=== PATIENT | male | born 1955 | race Caucasian/White ===

== ENCOUNTER 2018-10-24 21:55 | Emergency (ER) | payer OTHER ==
[2018-10-24 22:02] VITALS: BP 139/93; PULSE 91; TEMP 98.2; BMI 37.1
[2018-10-24] MEDS ORDERED: ALBUTEROL SO4 2.5/IPRATROPIUM 0.5 INH SOL 3 ML VIAL.NEB. NEB ONE (22:24)
--- NOTE | 2018-10-24 22:33 | PDOC ---
History of Present Illness - General Chief Complaint: Cold Symptoms Stated Complaint: COUGH/THINKS HE HAS ASTHMA Time Seen by Provider: 10/24/18 22:02 History Source: Patient Exam Limitations: No Limitations Past History - Past Medical History Allergies/Adverse Reactions: Allergies Allergy/AdvReac Type Severity Reaction Status Date / Time ibuprofen [From Motrin] Allergy Intermediate Verified 10/24/18 22:01 Home Medications: Ambulatory Orders Amlodipine Besylate [Norvasc -] 5 mg PO DAILY 10/20/14 Dextran 70/Hypromellose [Artificial Tears] 1 each OP DAILY 10/20/14 Tamsulosin HCl [Flomax -] 0.4 mg PO DAILY 10/20/14 Aspirin [ASA -] 81 mg PO DAILY #30 tab.chew 10/21/14 Atorvastatin Ca [Lipitor] 20 mg PO HS #30 tablet 10/21/14 Clopidogrel Bisulfate [Plavix -] 75 mg PO DAILY #30 tablet 10/21/14 Metoprolol Tartrate [Lopressor -] 25 mg PO BID #60 tablet 10/21/14 Zolpidem Tartrate [Ambien] 5 mg PO HS #0 tablet 10/21/14 Fluticasone Prop 0.05% Nasal [Flonase -] 1 - 2 spray NS DAILY #1 spray.pump 05/04 Montelukast Sodium [Singulair] 10 mg PO DAILY #10 tablet 10/24/18 COPD: No HTN: Yes - Immunization History Immunization Up to Date: Yes - Suicide/Smoking/Psychosocial Hx Smoking History: Unknown if ever smoked Have you smoked in the past 12 months: No Information on smoking cessation initiated: No Hx Alcohol Use: No Drug/Substance Use Hx: No Substance Use Type: None Hx Substance Use Treatment: No *Physical Exam - Vital Signs Last Vital Signs Temp Pulse Resp BP Pulse Ox 98.2 F 91 H 16 139/93 100 10/24/18 21:59 10/24/18 21:59 10/24/18 21:59 10/24/18 21:59 10/24/18 21:59 - Physical Exam General Appearance: No: Apparent Distress HEENT: positive: Normal Voice, Nasal Congestion, Rhinorrhea. negative: Muffled/ Hoarse voice, Pharyngeal Erythema, Tonsillar Exudate, Tonsillar Erythema, Sinus Tenderness Respiratory/Chest: positive: Wheezing (very minimal expiratory wheeze). negative: Respiratory Distress, Labored Respiration, Crackles, Rales, Rhonchi Cardiovascular: positive: Regular Rhythm, Regular Rate, S1, S2. negative: Murmur Gastrointestinal/Abdominal: positive: Normal Bowel Sounds, Soft. negative: Tender, Distended, Guarding, Rebound Integumentary: positive: Normal Color Neurologic: positive: Alert, Normal Mood/Affect Medical Decision Making - Medical Decision Making 63 y/o M with hx of HTN, HLD presents with dry cough x 1 week along with rhinorrhea, sneezing, nasal congestion, watery eyes, postnasal drip (worse at night). States suffers from allergies. Has tried Benadryl and Claritin at home without improvement of sxs. Denies fever, sob, cp, abd pain, n/v. Denies ever smoking in his life Sxs more consistent with likely allergic rhinitis Trial of duoneb given minimal wheeze heard and see if it helps 10/24/18 22:29 No further wheeze noted Stable for dc 10/24/18 22:50 *DC/Admit/Observation/Transfer Diagnosis at time of Disposition: Allergic rhinitis Qualifiers: Allergic rhinitis trigger: unspecified Allergic rhinitis seasonality: seasonal Qualified Code(s): J30.2 - Other seasonal allergic rhinitis - Discharge Dispostion Disposition: HOME Condition at time of disposition: Stable Decision to Admit order: No - Prescriptions Prescriptions: Fluticasone Prop 0.05% Nasal [Flonase -] 1 - 2 spray NS DAILY #1 spray.pump Montelukast Sodium [Singulair] 10 mg PO DAILY #10 tablet - Referrals - Patient Instructions Printed Discharge Instructions: DI for Allergic Rhinitis Additional Instructions: Thank you for choosing [facility]. It was a pleasure taking care of you. Likely your symptoms are from allergies Use the Flonase to help with your congestion for 1 week Use the Singular as directed Also recommend using Nedi-Pot to help with congestion Use humidifier at night Follow-up with your doctor in 2-3 days Return to the Emergency Department if your symptoms worsen or persist, you have fever, shortness of breath, chest pain or other concerning symptoms. Mohinder por elegir el [facility]. Fue un placer cuidar de ti. Probablemente tus sntomas laura de alergias. Usa el Flonase para ayudarte con tu congestin juan carlos 1 semana Usa el Singular rajesh se indica Tambin recomiendo usar Nedi-Pot para ayudar con la congestin Usar humidificador por la noche. Seguimiento con song mdico en 2-3 robertson. Regrese al Departamento de Emergencias si frances sntomas empeoran o persisten, tiene fiebre, falta de aliento, dolor en el pecho u otros sntomas relacionados. Print Language: MACANESE - Post Discharge Activity
== END 2018-10-24 22:56 | disposition home or self-care (01) ==
LOC: JERFT 21:55
PROC: 3E0F7GC Introduction of Other Therapeutic Substance into Respiratory Tract, Via Natural or Artificial Opening (ICD-10-PCS; principal; 2018-10-24)
DX: J30.2 Other seasonal allergic rhinitis (principal); I10 Essential (primary) hypertension; E78.5 Hyperlipidemia, unspecified
CPT/HCPCS: 99281-25

== ENCOUNTER 2018-12-01 14:29 | Observation (INO) | payer OTHER ==
[2018-12-01] MEDS ORDERED: ASPIRIN 81 MG CHEWABLE TABLETS PO ONE (15:01)
--- NOTE | 2018-12-01 15:01 | PDOC ---
History of Present Illness - General Chief Complaint: Chest Pain Stated Complaint: CHEST PAIN Time Seen by Provider: 12/01/18 14:55 History Source: Patient Exam Limitations: No Limitations - History of Present Illness Initial Comments: 63 yo M w a hx of HTN, HLD, and NIDDM presents to the ER with 2 hours of left sided chest pin described as a swollen and heavy sensation, rated 7/10 in intensity associated with radiation down the right arm. The patient endorses nausea but no emesis. He has also been experiencing excessive sweating recently. The patient states the pain came on while he was at rest and it is not worsened by physical exertion. The patient states he has felt this pain occasionally in the past but it has never been this bad so he came to get the pain evaluated. The patient denies current SOB or difficulty breathing. PCP - GREENSKEEPER: Zandra Segovia PSH: None reported Social Hx: Denies smoking, drinking, or other substance usage Allergies: Seasonal - NKDA. Denies being allergic to ibuprofen. Past History - Past Medical History Allergies/Adverse Reactions: Allergies Allergy/AdvReac Type Severity Reaction Status Date / Time ibuprofen [From Motrin] Allergy Intermediate Verified 12/01/18 14:32 Home Medications: Ambulatory Orders Amlodipine Besylate [Norvasc -] 5 mg PO DAILY 10/20/14 Dextran 70/Hypromellose [Artificial Tears] 1 each OP DAILY 10/20/14 Tamsulosin HCl [Flomax -] 0.4 mg PO DAILY 10/20/14 Atorvastatin Ca [Lipitor] 20 mg PO HS #30 tablet 10/21/14 Clopidogrel Bisulfate [Plavix -] 75 mg PO DAILY #30 tablet 10/21/14 Metoprolol Tartrate [Lopressor -] 25 mg PO BID #60 tablet 10/21/14 Zolpidem Tartrate [Ambien] 5 mg PO HS #0 tablet 10/21/14 Fluticasone Prop 0.05% Nasal [Flonase -] 1 - 2 spray NS DAILY #1 spray.pump 05/04 Montelukast Sodium [Singulair] 10 mg PO DAILY #10 tablet 10/24/18 COPD: No HTN: Yes - Immunization History Immunization Up to Date: Yes - Suicide/Smoking/Psychosocial Hx Smoking History: Never smoked Have you smoked in the past 12 months: No Information on smoking cessation initiated: No Hx Alcohol Use: No Drug/Substance Use Hx: No Substance Use Type: None Hx Substance Use Treatment: No Review of Systems - Review of Systems Able to Perform ROS?: Yes Comments:: CONSTITUTIONAL: Absent: fever, no chills, no fatigue EYES: Absent: visual changes ENT: Absent: ear pain, no sore throat CARDIOVASCULAR: Present: Chest pain Absent: no palpitations RESPIRATORY: Absent: cough, no SOB GI: Present: Nausea Absent: abdominal pain, no vomiting, no constipation, no diarrhea GENITOURINARY: Absent: dysuria, no frequency, no hematuria MUSKULOSKELETAL: Absent: back pain, no arthralgia, no myalgia SKIN: Absent: rash NEURO: Absent: headache *Physical Exam - Vital Signs Last Vital Signs Temp Pulse Resp BP Pulse Ox 98.5 F 105 H 17 141/93 98 12/01/18 14:32 12/01/18 14:32 12/01/18 14:32 12/01/18 14:32 12/01/18 14:32 - Physical Exam Comments: GENERAL: Well-appearing, well-nourished. No apparent distress. HEENT: Normocephalic, atraumatic. PERRL, EOM intact. CARDIOVASCULAR: Normal S1, S2. Regular rate and rhythm. PULMONARY: No evidence of respiratory distress. Lungs clear to auscultation bilaterally. No wheezing, rales or rhonchi. ABDOMEN: Soft, non-distended, non-tender. EXTREMITIES: Normal ROM in all four extremities. No gross deformities. SKIN: Warm, dry. No rash NEUROLOGICAL: No focal neurological deficits. Heart Score/ECG Review - History History: Moderately suspicious - Electrocardiogram EKG: Normal - Age Age: 45-65 - Risk Factors Risk Factors Heart Score: Yes Hx Hypercholesterolemia, Yes Hx Hypertension, Yes Hx Diabetes, Yes Hx Obesity Based on the list above the patient has:: >/=3 risk factors or Hx atherosclerotic disease - Troponin Troponin: </= normal limit - Score Heart Score - Total: 4 ED Treatment Course - LABORATORY CBC & Chemistry Diagram: 12/01/18 15:05 12/01/18 15:05 Medical Decision Making - Medical Decision Making 63 yo M w a hx of HTN, HLD, and NIDDM presents to the ER with 2 hours of left sided chest pin described as a swollen sensation, rated 5/10 in intensity associated with radiation down the right arm. The patient endorses nausea but no emesis and denies recent diaphoresis. The patient states the pain came on while he was at rest and it is not worsened by physical exertion. The patient states he has felt this pain occasionally in the past but it was worse today so he came to get the pain evaluated. Vital Signs Temp Pulse Resp BP Pulse Ox 98.5 F 105 H 17 141/93 98 12/01/18 14:32 12/01/18 14:32 12/01/18 14:32 12/01/18 14:32 12/01/18 14:32 DDx IBNLT: ACS/IA, Angina, electrolyte/metabolic disturbance, PNA, pneumothorax , URI, pericarditis, costochondritis Plan: Labs, CXR, EKG, re-assess. HEART score minimum 4 - Patient will probably be admitted to [facility] bc of his story and risk factors. *DC/Admit/Observation/Transfer Diagnosis at time of Disposition: Chest pain - Discharge Dispostion Condition at time of disposition: Stable Decision to Admit order: Yes - Referrals Referrals: Marilyn Duke MD [Primary Care Provider] - - Patient Instructions - Post Discharge Activity
[2018-12-01] MEDS ORDERED: ASPIRIN 81 MG CHEWABLE TABLETS ONE (15:15)
[2018-12-01 15:17] LABS: BASO % 0.8 % (0-2.0); EOS % 4.1 % (0-4.5); HEMATOCRIT 45.8 % (35.4-49); HEMOGLOBIN 15.7 GM/dL (11.7-16.9); LYMPH % 15.5 % (8-40); MCH 28.3 pg (25.7-33.7); MCHC 34.3 g/dl (32.0-35.9); MEAN CELL VOLUME 82.5 fl (80-96); MEAN PLT VOLUME 7.9 fl (7.5-11.1); MONO % 7.2 % (3.8-10.2); NEUT % 72.4 % (42.8-82.8); PLATELET COUNT 305 K/MM3 (134-434); RBC 5.55 M/mm3 (4.00-5.60); RDW 13.6 % (11.9-15.9); WHITE BLOOD COUNT 7.9 K/mm3 (4.0-10.0)
[2018-12-01 15:40] LABS: INR 1.13 (0.83-1.09); PROTHROMBIN TIME (PATIENT) 13.4 SEC (9.7-13.0)
[2018-12-01 15:57] LABS: ALBUMIN 4.1 g/dl (3.4-5.0); ALK PHOS 102 U/L (45-117); ANION GAP 6 MMOL/L (8-16); BILIRUBIN,TOTAL 0.5 mg/dL (0.2-1); BLOOD UREA NITROGEN 11.5 mg/dL (7-18); CALCIUM 8.9 mg/dL (8.5-10.1); CHLORIDE 105 mmol/L (98-107); CO2 31 mmol/L (21-32); CREATININE 1.3 mg/dL (0.55-1.3); GLUCOSE,RANDOM 125 mg/dL (74-106); MAGNESIUM 2.3 mg/dL (1.8-2.4); POTASSIUM 3.9 mmol/L (3.5-5.1); SGOT/AST 25 U/L (15-37); SGPT/ALT 39 U/L (13-61); SODIUM 141 mmol/L (136-145); TOT PROT 7.9 g/dl (6.4-8.2)
--- NOTE | 2018-12-01 16:42 | PDOC ---
Documentation entered by Frida Barrow SCRIBE, acting as scribe for Maribel Celis MD. Maribel Celis MD: This documentation has been prepared by the geniaibe, Frida Barrow SCRIBE, under my direction and personally reviewed by me in its entirety. I confirm that the documentation accurately reflects all work, treatment, procedures, and medical decision making performed by me. Attending Attestation - Resident Resident Name: Pete Braswell - ED Attending Attestation I have performed the following: I have examined & evaluated the patient, The case was reviewed & discussed with the resident, I agree w/resident's findings & plan, Exceptions are as noted - HPI HPI: 12/01/18 16:11 The patient is a 63 year old male with a past medical history significant for HTN, HLD, NIDDM presents to the emergency department with chest pain. The patient presents with 3 hours of intermittent, left sided squeaking pain associated with right arm numbness. The patient reports the pain presented while driving, non-aggravated with exertion or isnt associated with shortness of breath. Allergies: Ibuprofen. - Physicial Exam PE: 12/01/18 16:13 GENERAL: The patient is in no acute distress. +diaphoretic. ENT: Ears normal, nares patent, oropharynx clear without exudates. Moist mucous membranes. NECK: Normal range of motion, supple, no nuchal rigidity LUNGS: Breath sounds equal, clear to auscultation bilaterally. No wheezes, and no crackles. HEART: Regular rate and rhythm, normal S1 and S2 without murmurs, rubs or gallops. ABDOMEN: Soft, nontender. No guarding, no rebound. No masses palpable. EXTREMITIES: Normal range of motion, no edema. NEUROLOGICAL: Cranial nerves II through XII grossly intact. Normal speech. No focal neurological deficits. SKIN: Warm, Dry, normal turgor, no rashes or lesions noted. - Medical Decision Making 12/01/18 16:39 63 yo M DM, HTN, HLD, Obesity presenting with 3 hours of left sided squeezing chest pain with radiation to the right arm Occurred while driving No prior episodes like this Chest pain non exertional No shortness of breath No fevers or chills DD: Differential includes cardiac ischemia, pe, asthma exacerbation, pneumonia, pneumothorax, pleural effusion, costochondritis, pericarditis, GERD. Laboratory Tests 12/01/18 12/01/18 12/01/18 15:05 15:05 15:05 WBC 7.9 Hgb 15.7 Hct 45.8 Plt Count 305 D INR 1.13 H BUN 11.5 Creatinine 1.3 Creatine Kinase 65 Troponin I < 0.02 EKG - Twelve-lead EKG was performed and reviewed by me. There is normal sinus rhythm with a normal rate. The axis is normal. The intervals are normal. There are no ST or T wave abnormalities. Impression: Normal twelve-lead EKG CXR- no acute infiltrates seen 12/01/18 16:40 Will admit Pt HEART SCORE: [address] on observation Heart Score/ECG Review - History History: Moderately suspicious - Electrocardiogram EKG: Normal - Age Age: 45-65 - Risk Factors Risk Factors Heart Score: Yes Hx Hypercholesterolemia, Yes Hx Hypertension, Yes Hx Diabetes, Yes Hx Obesity Based on the list above the patient has:: >/=3 risk factors or Hx atherosclerotic disease - Troponin Troponin: </= normal limit - Score Heart Score - Total: 4
[2018-12-01] MEDS ORDERED: ARTIFICIAL TEARS (POLYVINYL ALCOHOL) OPTH DROPS OU PRN (16:48)
--- NOTE | 2018-12-01 16:49 | HP ---
Admitting History and Physical - Primary Care Physician PCP: Marilyn Duke - Admission Chief Complaint: Chest Pain History of Present Illness: 63 yrs old male obese H/O HTN, Borderline T2DM on Metformin, Dyslipedemia,CAD s /p Cardiac Cath (10/24/2014 at [facility]. admitted at [place] + NST shows Inf Ischemia so referred to [place] unsure about stenting not on Plavix) present with Left sided chest discimfort with that he describes as pressure with Rt. UE numbness and perspiration, denies any SOB, plapitation, symptoms cont for 2 hrs so came to Ed fir evaluation, in the ED hemodynamically stable chest pain improved EKG NSR Ist Troponin I negative consideriong risk factors and HEART scopre 4 admitted for further evaluation to R/O ACS> Home Meds; per his Pharmacy ([facility]) Lipitor 10 vit d 2000 Amlodipine 10 metformin 500 daily Flomax 0.4 Protonix 40 ASA 81 History Source: Patient - Past Medical History Cardiovascular: Yes: HTN, Hyperlipdemia - Past Surgical History Past Surgical History: Yes: None - Smoking History Smoking history: Never smoked Have you smoked in the past 12 months: No - Alcohol/Substance Use Hx Alcohol Use: No History of Substance Use: reports: None - Social History ADL: Independent History of Recent Travel: No Home Medications - Allergies Allergies/Adverse Reactions: Allergies Allergy/AdvReac Type Severity Reaction Status Date / Time ibuprofen [From Motrin] Allergy Intermediate Verified 12/01/18 14:32 - Home Medications Home Medications: Ambulatory Orders Amlodipine Besylate [Norvasc -] 5 mg PO DAILY 10/20/14 Dextran 70/Hypromellose [Artificial Tears] 1 each OP DAILY 10/20/14 Tamsulosin HCl [Flomax -] 0.4 mg PO DAILY 10/20/14 Atorvastatin Ca [Lipitor] 20 mg PO HS #30 tablet 10/21/14 Clopidogrel Bisulfate [Plavix -] 75 mg PO DAILY #30 tablet 10/21/14 Metoprolol Tartrate [Lopressor -] 25 mg PO BID #60 tablet 10/21/14 Zolpidem Tartrate [Ambien] 5 mg PO HS #0 tablet 10/21/14 Fluticasone Prop 0.05% Nasal [Flonase -] 1 - 2 spray NS DAILY #1 spray.pump 05/04 Montelukast Sodium [Singulair] 10 mg PO DAILY #10 tablet 10/24/18 Family Disease History - Family Disease History Family History: Unremarkable Review of Systems - Review of Systems Constitutional: denies: Chills, Diaphoresis HENT: denies: Difficult Swallowing, Ear Discharge Neck: denies: Decreased ROM, Lumps, Pain on Movement Cardiovascular: reports: Chest Pain. denies: Edema, Palpitations, Shortness of Breath Respiratory: denies: Cough, Exercise Intolerance, Hemoptysis Gastrointestinal: denies: Abdominal Pain, Bloating, Constipation, Diarrhea Genitourinary: denies: Burning, Discharge, Testicular Swelling Musculoskeletal: denies: Back Pain, Crepitus Integumentary: denies: Blister, Bruising Endocrine: denies: Excessive Sweating, Flushing Pain Intensity: 40 Physical Examination Vital Signs: Vital Signs Temperature 98.5 F 12/01/18 14:32 Pulse Rate 105 H 12/01/18 14:32 Respiratory Rate 17 12/01/18 14:32 Blood Pressure 141/93 12/01/18 14:32 O2 Sat by Pulse Oximetry (%) 98 12/01/18 14:32 Constitutional: Yes: Well Nourished, No Distress HENT: Yes: WNL, Atraumatic, Normocephalic, Pharyngeal Erythema Cardiovascular: Yes: S1, S2. No: JVD, Gallop, Murmur Respiratory: Yes: Regular, CTA Bilaterally Gastrointestinal: Yes: Normal Bowel Sounds, Soft Extremities: No: Calf Tenderness Edema: No Peripheral Pulses WNL: Yes Peripheral Pulses: Left Doralis Pedis: 2+, Right Dorsalis Pedis: 2+ Neurological: Yes: Alert, Oriented ...Motor Strength: WNL, LLE, RUE, RLE Labs: CBC,CMP WBC 7.9 K/mm3 (4.0-10.0) 12/01/18 15:05 RBC 5.55 M/mm3 (4.00-5.60) 12/01/18 15:05 Hgb 15.7 GM/dL (11.7-16.9) 12/01/18 15:05 Hct 45.8 % (35.4-49) 12/01/18 15:05 MCV 82.5 fl (80-96) 12/01/18 15:05 MCH 28.3 pg (25.7-33.7) 12/01/18 15:05 MCHC 34.3 g/dl (32.0-35.9) 12/01/18 15:05 RDW 13.6 % (11.9-15.9) 12/01/18 15:05 Plt Count 305 K/MM3 (134-434) D 12/01/18 15:05 MPV 7.9 fl (7.5-11.1) 12/01/18 15:05 Absolute Neuts (auto) 5.7 K/mm3 (1.5-8.0) 12/01/18 15:05 Neutrophils % 72.4 % (42.8-82.8) 12/01/18 15:05 Lymphocytes % 15.5 % (8-40) 12/01/18 15:05 Monocytes % 7.2 % (3.8-10.2) 12/01/18 15:05 Eosinophils % 4.1 % (0-4.5) 12/01/18 15:05 Basophils % 0.8 % (0-2.0) 12/01/18 15:05 Nucleated RBC % 0 % (0-0) 12/01/18 15:05 Sodium 141 mmol/L (136-145) 12/01/18 15:05 Potassium 3.9 mmol/L (3.5-5.1) 12/01/18 15:05 Chloride 105 mmol/L (98-107) 12/01/18 15:05 Carbon Dioxide 31 mmol/L (21-32) 12/01/18 15:05 Anion Gap 6 MMOL/L (8-16) L 12/01/18 15:05 BUN 11.5 mg/dL (7-18) 12/01/18 15:05 Creatinine 1.3 mg/dL (0.55-1.3) 12/01/18 15:05 Est GFR (CKD-EPI)AfAm 66.83 12/01/18 15:05 Est GFR (CKD-EPI)NonAf 57.66 12/01/18 15:05 Random Glucose 125 mg/dL (74-106) H 12/01/18 15:05 Calcium 8.9 mg/dL (8.5-10.1) 12/01/18 15:05 Magnesium 2.3 mg/dL (1.8-2.4) 12/01/18 15:05 Total Bilirubin 0.5 mg/dL (0.2-1) 12/01/18 15:05 AST 25 U/L (15-37) 12/01/18 15:05 ALT 39 U/L (13-61) 12/01/18 15:05 Alkaline Phosphatase 102 U/L (45-117) 12/01/18 15:05 Creatine Kinase 65 U/L (26-308) 12/01/18 15:05 Troponin I < 0.02 ng/ml (0.00-0.05) 12/01/18 15:05 Total Protein 7.9 g/dl (6.4-8.2) 12/01/18 15:05 Albumin 4.1 g/dl (3.4-5.0) 12/01/18 15:05 Imaging - Results Chest X-ray: Report Reviewed (Normal) EKG: Report Reviewed (NSR at [address] changes) Problem List - Problems (1) Chest pain Assessment/Plan: Atypical but CAD risk factors H/O angioplasty will admit for observation , Cardiac Tele, serial CE and EKGS X2, cont ASA 81, Lipitor , ECHO, Cardiology consult Code(s): R07.9 - CHEST PAIN, UNSPECIFIED (2) HTN (hypertension) Assessment/Plan: Well controlled cont Amlodipine 10 mg Code(s): I10 - ESSENTIAL (PRIMARY) HYPERTENSION (3) Hyperlipidemia Assessment/Plan: On Lipitor 10 F/U Lipid panel TSH a cont Liptor one doni dose of 80 mg for ACS Code(s): E78.5 - HYPERLIPIDEMIA, UNSPECIFIED (4) Obesity Assessment/Plan: Nutrition consult Code(s): E66.9 - OBESITY, UNSPECIFIED Qualifiers: Body mass index: BMI 38.0-38.9 (5) BPH (benign prostatic hyperplasia) Assessment/Plan: Cont Flomax Code(s): N40.0 - BENIGN PROSTATIC HYPERPLASIA WITHOUT LOWER URINRY TRACT SYMP (6) Borderline diabetes Assessment/Plan: hold metformin f/u accucheck Code(s): R73.03 - PREDIABETES (7) CAD (coronary artery disease) Assessment/Plan: Probably non obstructive previously undewrwent CATh but not on plavix unable to recall if he had stent Cont ASa, sttain R/O ACS, ECHO will F/U Cardiology input. Code(s): I25.10 - ATHSCL HEART DISEASE OF [place] CORONARY ARTERY W/O ANG PCTRS
[2018-12-01] MEDS ORDERED: ATORVASTATIN CA 80 MG TABLET (FP) PO ONE (18:49)
[2018-12-01] MEDS ORDERED: ATORVASTATIN CA 80 MG TABLET (FP) ONE (19:26)
[2018-12-01] MEDS ORDERED: LORATADINE 10 MG TABLET ONE (19:26)
[2018-12-01] MEDS: LORATADINE 10 MG TABLET PO SCH (20:55)
[2018-12-01 21:45] LABS: CHOLESTEROL 107 mg/dL (50-200); HDL CHOLESTEROL 27 mg/dL (40-60); TRIGLYCERIDES 162 mg/dL (0-150)
[2018-12-01] MEDS ORDERED: METOPROLOL TARTRATE 25 MG TABLET (FP) PO SCH (22:00)
[2018-12-01] MEDS ORDERED: ATORVASTATIN CA 20 MG TABLET (FP) PO SCH (22:00)
[2018-12-01] MEDS: ZOLPIDEM TARTRATE 5 MG TABLET PO SCH (22:13)
[2018-12-02 00:39] VITALS: BMI 36.2
[2018-12-02] MEDS: INSULIN SLIDING SCALE (NOVOLOG) 1 VIAL SQ SCH ×3 (06:01→16:41)
[2018-12-02 06:44] LABS: HEMATOCRIT 42.2 % (35.4-49); WHITE BLOOD COUNT 6.4 K/mm3 (4.0-10.0)
[2018-12-02 06:57] LABS: ALBUMIN 3.6 g/dl (3.4-5.0); BILIRUBIN,TOTAL 0.6 mg/dL (0.2-1); BLOOD UREA NITROGEN 13.9 mg/dL (7-18); CALCIUM 8.6 mg/dL (8.5-10.1); CREATININE 1.1 mg/dL (0.55-1.3); POTASSIUM 4.2 mmol/L (3.5-5.1); TOT PROT 6.8 g/dl (6.4-8.2)
--- NOTE | 2018-12-02 07:35 | PN ---
Progress Note, Physician History of Present Illness: 63 yrs old male PMH HTN, Borderline T2DM on Metformin, Dyslipedemia,CAD s/p Cardiac Cath (10/24/2014 at [facility]. admitted at [place] + NST shows Inf Ischemia - referred to [place] leif questionable stent placement however not on anticoagualtion) present with Left sided chest discomfort while driving described as pressure with right arm numbness and diaphoresis, denies SOB, palpations lasting for 2 hours. Upon arrival to ED hemodynamically stable chest pain improved EKG NSR with Troponin I negative x2 - Current Medication List Current Medications: Active Medications Amlodipine Besylate (Norvasc -) 5 mg PO DAILY [facility] Artificial Tears (Artificial Tears) 1 drop OU DAILY [facility] Aspirin (Asa -) 81 mg PO DAILY [facility] Fluticasone Propionate (Flonase -) 1 spray NS DAILY [facility] Insulin Aspart (Novolog Vial Sliding Scale -) 1 vial SQ TIDAC [facility]; Protocol Last Admin: 12/02/18 06:01 Dose: Not Given Loratadine (Claritin -) 10 mg PO DAILY [facility] Last Admin: 12/01/18 20:55 Dose: 10 mg Tamsulosin HCl (Flomax -) 0.4 mg PO DAILY [facility] Zolpidem Tartrate (Ambien -) 5 mg PO HS [facility] Last Admin: 12/01/18 22:13 Dose: 5 mg - Objective Vital Signs: Vital Signs Temperature 97.7 F 12/02/18 06:00 Pulse Rate 76 12/02/18 06:00 Respiratory Rate 18 12/02/18 06:00 Blood Pressure 116/74 12/02/18 06:00 O2 Sat by Pulse Oximetry (%) 97 12/02/18 05:30 Constitutional: Yes: Well Nourished, No Distress, Calm Eyes: Yes: WNL, Conjunctiva Clear, EOM Intact HENT: Yes: WNL, Atraumatic, Normocephalic Neck: Yes: WNL, Supple, Trachea Midline Cardiovascular: Yes: WNL, Regular Rate and Rhythm Respiratory: Yes: WNL, Regular, CTA Bilaterally Gastrointestinal: Yes: WNL, Normal Bowel Sounds, Soft, Abdomen, Obese ...Rectal Exam: Yes: Deferred Genitourinary: Yes: WNL Musculoskeletal: Yes: WNL Extremities: Yes: WNL Edema: No Peripheral Pulses WNL: Yes Integumentary: Yes: WNL Neurological: Yes: WNL, Alert, Oriented, Other (primarily malaysian speaking) ...Motor Strength: WNL Psychiatric: Yes: WNL, Alert, Oriented Labs: CBC, BMP 12/02/18 05:35 INR, PTT INR 1.13 (0.83-1.09) H 12/01/18 15:05 - ....Imaging Chest X-ray: Report Reviewed, Image Reviewed (no effsuion or infiltrates) EKG: Image Reviewed (NSR, QTc 447) Problem List - Problems (1) Prophylactic measure Assessment/Plan: FEN low fat/cholesterol diabetic diet monitor electrolytes nutrition counseling Prophy SCDs ambulation ad mirta Dispo mainatin as in patient discharge planning full code Code(s): Z29.9 - ENCOUNTER FOR PROPHYLACTIC MEASURES, UNSPECIFIED (2) BPH (benign prostatic hyperplasia) Assessment/Plan: continue home dose of flomax Code(s): N40.0 - BENIGN PROSTATIC HYPERPLASIA WITHOUT LOWER URINRY TRACT SYMP (3) CAD (coronary artery disease) Assessment/Plan: + stress test 2014; a subsequent coronary angiogram showed nonobstructive CAD. Coronary angiogram 10/24/2014 at [facility]: non obstructive CAD (LAD proximal, mid and distal with 30% stenoses; LCx mid 30%; RCA luminal irregularities). plan for exercise stress today Code(s): I25.10 - ATHSCL HEART DISEASE OF [place] CORONARY ARTERY W/O ANG PCTRS (4) Chest pain Assessment/Plan: EKG NSR, trops negative x 2 ASA given in ED and continue daily cardiology consulted and appreciate recommendations Exercise stress planned for today Code(s): R07.9 - CHEST PAIN, UNSPECIFIED (5) Diabetes Assessment/Plan: continue to hold metformin BGM AC.qHS with novolog sliding scale Code(s): E11.9 - TYPE 2 DIABETES MELLITUS WITHOUT COMPLICATIONS (6) HTN (hypertension) Assessment/Plan: normotensive, continue home dose of amlodopine Code(s): I10 - ESSENTIAL (PRIMARY) HYPERTENSION (7) Hyperlipidemia Assessment/Plan: continue home dose or lipitor Code(s): E78.5 - HYPERLIPIDEMIA, UNSPECIFIED (8) Obesity Assessment/Plan: nutrition counseling Code(s): E66.9 - OBESITY, UNSPECIFIED Qualifiers: Body mass index: BMI 38.0-38.9 Visit type - Emergency Visit Emergency Visit: Yes ED Registration Date: 12/01/18 Care time: The patient presented to the Emergency Department on the above date and was hospitalized for further evaluation of their emergent condition. - New Patient This patient is new to me today: Yes Date on this admission: 12/02/18 - Critical Care Critical Care patient: No - Discharge Referral Referred to [facility] No
[2018-12-02 07:37] LABS: BASO % 0.5 % (0-2.0); EOS % 6.8 % (0-4.5); HEMOGLOBIN 14.4 GM/dL (11.7-16.9); LYMPH % 21.8 % (8-40); MCH 28.2 pg (25.7-33.7); MCHC 34.2 g/dl (32.0-35.9); MEAN CELL VOLUME 82.5 fl (80-96); MEAN PLT VOLUME 8.3 fl (7.5-11.1); MONO % 9.2 % (3.8-10.2); NEUT % 61.7 % (42.8-82.8); PLATELET COUNT 282 K/MM3 (134-434); RBC 5.11 M/mm3 (4.00-5.60); RDW 13.8 % (11.9-15.9)
--- NOTE | 2018-12-02 08:08 | EKG ---
Test Reason : Blood Pressure : / mmHG Vent. Rate : 097 BPM Atrial Rate : 097 BPM P-R Int : 172 ms QRS Dur : 090 ms QT Int : 352 ms P-R-T Axes : 063 025 072 degrees QTc Int : 447 ms NORMAL SINUS RHYTHM LOW VOLTAGE QRS BORDERLINE ECG WHEN COMPARED WITH ECG OF 21-OCT-2014 09:03, NO SIGNIFICANT CHANGE WAS FOUND Confirmed by SEBASTIAN JIMENEZ MD ([id number]) on 12/02/2018 8:07:53 AM Referred By: Confirmed By:SEBASTIAN JIMENEZ MD
--- NOTE | 2018-12-02 08:12 | CON.CARD ---
Consult Consult Specialty:: Cardiology - History of Present Illness History of Present Illness: 63 yrs old male obese H/O HTN, Borderline T2DM on Metformin, Dyslipedemia,CAD s/ p Cardiac Cath (10/24/2014 at [facility]. admitted at [place] + NST shows Inf Ischemia so referred to [place] unsure about stenting not on Plavix) present with Left sided chest discimfort with that he describes as pressure with Rt. UE numbness and perspiration, denies any SOB, plapitation, symptoms cont for 2 hrs so came to Ed fir evaluation, in the ED hemodynamically stable chest pain improved EKG NSR Ist Troponin I negative consideriong risk factors and HEART scopre 4 admitted for further evaluation to R/O ACS> Home Meds; per his Pharmacy ([facility]) - Past Medical History Cardio/Vascular: Yes: HTN, Hyperlipdemia - Past Surgical History Past Surgical History: Yes: None - Alcohol/Substance Use Hx Alcohol Use: No History of Substance Use: reports: None - Smoking History Smoking history: Never smoked Have you smoked in the past 12 months: No - Social History ADL: Independent History of Recent Travel: No Home Medications - Allergies Allergies/Adverse Reactions: Allergies Allergy/AdvReac Type Severity Reaction Status Date / Time ibuprofen [From Motrin] Allergy Intermediate Verified 12/01/18 14:32 - Home Medications Home Medications: Ambulatory Orders Amlodipine Besylate [Norvasc -] 5 mg PO DAILY 10/20/14 Dextran 70/Hypromellose [Artificial Tears] 1 each OP DAILY 10/20/14 Tamsulosin HCl [Flomax -] 0.4 mg PO DAILY 10/20/14 Atorvastatin Ca [Lipitor] 20 mg PO HS #30 tablet 10/21/14 Clopidogrel Bisulfate [Plavix -] 75 mg PO DAILY #30 tablet 10/21/14 Metoprolol Tartrate [Lopressor -] 25 mg PO BID #60 tablet 10/21/14 Zolpidem Tartrate [Ambien] 5 mg PO HS #0 tablet 10/21/14 Fluticasone Prop 0.05% Nasal [Flonase -] 1 - 2 spray NS DAILY #1 spray.pump 05/04 Montelukast Sodium [Singulair] 10 mg PO DAILY #10 tablet 10/24/18 Vital Signs: Vital Signs Temperature 97.7 F 12/02/18 06:00 Pulse Rate 76 12/02/18 06:00 Respiratory Rate 18 12/02/18 06:00 Blood Pressure 116/74 12/02/18 06:00 O2 Sat by Pulse Oximetry (%) 97 12/02/18 05:30 - Other Data Labs, Other Data: CBC, BMP 12/02/18 05:35 12/02/18 05:35 INR, PTT INR 1.13 (0.83-1.09) H 12/01/18 15:05 Troponin, BNP 12/01/18 12/01/18 15:05 21:04 Troponin I < 0.02 < 0.02 Troponin, BNP 12/01/18 12/01/18 15:05 21:04 Troponin I < 0.02 < 0.02
--- NOTE | 2018-12-02 08:39 | CON.CARD ---
Consult Consult Specialty:: cardiology Reason for Consultation:: chest pain - History of Present Illness History of Present Illness: The patient is a 63 year old male with a past medical history significant for HTN, HLD, NIDDM, BPH (was on FLomax) presents to the emergency department with chest pain. The patient presents with 3 hours of intermittent, left sided squeaking pain associated with right arm numbness. The patient reports the pain presented while driving, non-aggravated with exertion or isnt associated with shortness of breath. Allergies: Ibuprofen. Pt had + stress test 2014; a subsequent coronary angiogram showed nonobstructive CAD. He apparently did not have DM at that time. Coronary angiogram 10/24/2014 at [facility]: non obstructive CAD (LAD proximal, mid and distal with 30% stenoses; LCx mid 30%; RCA luminal irregularities). - History Source History Provided By: Patient, Medical Record Limitations to Obtaining History: No Limitations - Past Medical History Cardio/Vascular: Yes: HTN, Hyperlipdemia Pulmonary: No: Asthma Renal/: No: Renal Inusuff Heme/Onc: No: Anemia - Past Surgical History Additional Surgical History: coronary angiogram 2015: no PCI required - Alcohol/Substance Use Hx Alcohol Use: No History of Substance Use: reports: None - Smoking History Smoking history: Never smoked Have you smoked in the past 12 months: No - Social History ADL: Independent History of Recent Travel: No Home Medications - Allergies Allergies/Adverse Reactions: Allergies Allergy/AdvReac Type Severity Reaction Status Date / Time ibuprofen [From Motrin] Allergy Intermediate Verified 12/01/18 14:32 - Home Medications Home Medications: Ambulatory Orders Amlodipine Besylate [Norvasc -] 5 mg PO DAILY 10/20/14 Dextran 70/Hypromellose [Artificial Tears] 1 each OP DAILY 10/20/14 Tamsulosin HCl [Flomax -] 0.4 mg PO DAILY 10/20/14 Atorvastatin Ca [Lipitor] 20 mg PO HS #30 tablet 10/21/14 Metoprolol Tartrate [Lopressor -] 25 mg PO BID #60 tablet 10/21/14 Fluticasone Prop 0.05% Nasal [Flonase -] 1 - 2 spray NS DAILY #1 spray.pump 05/04 Montelukast Sodium [Singulair] 10 mg PO DAILY #10 tablet 10/24/18 Aspirin [ASA -] 81 mg PO DAILY tab.chew 12/02/18 Insulin Sliding Scale [Novolog Vial Sliding Scale -] 1 vial SQ TIDAC units Loratadine [Claritin -] 10 mg PO DAILY tablet 12/02/18 Polyvinyl Alcohol [Artificial Tears] 1 drop OU DAILY drops 12/02/18 Polyvinyl Alcohol [Artificial Tears] 1 drop OU Q4H PRN drops 12/02/18 Family Disease History - Family Disease History Family History: Denies Review of Systems - Review of Systems Constitutional: reports: No Symptoms Eyes: reports: No Symptoms HENT: reports: No Symptoms Neck: reports: No Symptoms Cardiovascular: reports: Chest Pain Respiratory: reports: No Symptoms Gastrointestinal: reports: No Symptoms Genitourinary: reports: No Symptoms Breasts: reports: No Symptoms Reported Musculoskeletal: reports: No Symptoms Integumentary: reports: No Symptoms Neurological: reports: No Symptoms Endocrine: reports: No Symptoms Hematology/Lymphatic: reports: No Symptoms Psychiatric: reports: No Symptoms - Risk Factors Known Risk Factors: Yes: Age, Diabetes Mellitus, Gender, Hypercholesterolemia, Hypertension, Physical Inactivity Vital Signs: Vital Signs Temperature 97.7 F 12/02/18 06:00 Pulse Rate 76 12/02/18 06:00 Respiratory Rate 18 12/02/18 06:00 Blood Pressure 116/74 12/02/18 06:00 O2 Sat by Pulse Oximetry (%) 97 12/02/18 05:30 Constitutional: Yes: No Distress, Obese Eyes: Yes: WNL HENT: Yes: WNL Neck: Yes: WNL Respiratory: Yes: WNL Gastrointestinal: Yes: WNL JVD: No Carotid Bruit: No Heart Sounds: Yes: S1, S2, S4 Musculoskeletal: Yes: WNL Extremities: Yes: WNL Edema: No Peripheral Pulses WNL: Yes Integumentary: Yes: WNL Neurological: Yes: WNL ...Motor Strength: WNL Psychiatric: Yes: WNL - Other Data Labs, Other Data: CBC, BMP 12/02/18 05:35 12/02/18 05:35 INR, PTT INR 1.13 (0.83-1.09) H 12/01/18 15:05 Troponin, BNP 12/01/18 12/01/18 15:05 21:04 Troponin I < 0.02 < 0.02 Troponin, BNP 12/01/18 12/01/18 15:05 21:04 Troponin I < 0.02 < 0.02 Abnormal Lab Results 12/03/18 12/03/18 05:15 05:15 Eosinophils % 7.0 H Anion Gap 6 L Random Glucose 119 H Imaging - Results Chest X-ray: Image Reviewed (elevated rt hemidiagpramgm; degenerative vertebrae) EKG: Image Reviewed (NSR: low voltage) Problem List - Problems (1) Diabetes Assessment/Plan: Recently started Metformin. Consider starting ACEI for renal protection could stopd amlodipine if BP drops too low). Code(s): E11.9 - TYPE 2 DIABETES MELLITUS WITHOUT COMPLICATIONS (2) Chest pain Assessment/Plan: No acute EKG changes. TNI <0.02 x 2. Multiple CAD risks. Stress MIBI + in 2014; coronary angiogram nonobstructive disease. Pt did not have DM at that time. Will repeat stress test. Code(s): R07.9 - CHEST PAIN, UNSPECIFIED (3) HTN (hypertension) Code(s): I10 - ESSENTIAL (PRIMARY) HYPERTENSION (4) Hyperlipidemia Assessment/Plan: statin; keep LDL < 70 mg/dl Code(s): E78.5 - HYPERLIPIDEMIA, UNSPECIFIED (5) Obesity Code(s): E66.9 - OBESITY, UNSPECIFIED Qualifiers: Body mass index: BMI 38.0-38.9 (6) BPH (benign prostatic hyperplasia) Code(s): N40.0 - BENIGN PROSTATIC HYPERPLASIA WITHOUT LOWER URINRY TRACT SYMP
[2018-12-02] MEDS: LORATADINE 10 MG TABLET PO SCH (09:10)
[2018-12-02] MEDS: amLODIPine BESYLATE 5 MG TABLET (FP) PO SCH (09:10)
[2018-12-02] MEDS: TAMSULOSIN HCL 0.4 MG CAP PO SCH (09:10)
[2018-12-02] MEDS: ASPIRIN 81 MG CHEWABLE TABLETS PO SCH (09:10)
[2018-12-02] MEDS ORDERED: CLOPIDOGREL BISULFATE 75 MG TABLET (FP) PO SCH (10:00)
[2018-12-02] MEDS ORDERED: PATIENT'S OWN MEDICATION (NON-FORMULARY) (Dextran 70/Hypromellose [Artificial Tears] 1 EAC OP SCH (10:00)
[2018-12-02] MEDS ORDERED: MONTELUKAST NA 10 MG TABLET PO SCH (10:00)
--- NOTE | 2018-12-02 10:53 | PN ---
Progress Note, Physician History of Present Illness: The patient is a 63 year old male with a past medical history significant for HTN, HLD, NIDDM, BPH (was on FLomax) presents to the emergency department with chest pain. The patient presents with 3 hours of intermittent, left sided squeaking pain associated with right arm numbness. The patient reports the pain presented while driving, non-aggravated with exertion or isnt associated with shortness of breath. Allergies: Ibuprofen. Pt had + stress test 2014; a subsequent coronary angiogram showed nonobstructive CAD. He apparently did not have DM at that time. Coronary angiogram 10/24/2014 at [facility]: non obstructive CAD (LAD proximal, mid and distal with 30% stenoses; LCx mid 30%; RCA luminal irregularities). - Current Medication List Current Medications: Active Medications Amlodipine Besylate (Norvasc -) 5 mg PO DAILY [facility] Last Admin: 12/02/18 09:10 Dose: 5 mg Artificial Tears (Artificial Tears) 1 drop OU DAILY [facility] Aspirin (Asa -) 81 mg PO DAILY [facility] Last Admin: 12/02/18 09:10 Dose: 81 mg Fluticasone Propionate (Flonase -) 1 spray NS DAILY [facility] Insulin Aspart (Novolog Vial Sliding Scale -) 1 vial SQ TIDAC [facility]; Protocol Last Admin: 12/02/18 06:01 Dose: Not Given Loratadine (Claritin -) 10 mg PO DAILY [facility] Last Admin: 12/02/18 09:10 Dose: 10 mg Tamsulosin HCl (Flomax -) 0.4 mg PO DAILY [facility] Last Admin: 12/02/18 09:10 Dose: 0.4 mg Zolpidem Tartrate (Ambien -) 5 mg PO HS [facility] Last Admin: 12/01/18 22:13 Dose: 5 mg - Objective Vital Signs: Vital Signs Temperature 97.7 F 12/02/18 06:00 Pulse Rate 76 12/02/18 06:00 Respiratory Rate 18 12/02/18 06:00 Blood Pressure 116/74 12/02/18 06:00 O2 Sat by Pulse Oximetry (%) 97 12/02/18 05:30 Eyes: Yes: WNL, Conjunctiva Clear, EOM Intact HENT: Yes: WNL, Atraumatic, Normocephalic Neck: Yes: WNL, Supple, Trachea Midline Cardiovascular: Yes: WNL, Regular Rate and Rhythm Respiratory: Yes: WNL, Regular, CTA Bilaterally Gastrointestinal: Yes: WNL, Normal Bowel Sounds Genitourinary: Yes: WNL Musculoskeletal: Yes: WNL Extremities: Yes: WNL Edema: No Integumentary: Yes: WNL Neurological: Yes: WNL, Alert, Oriented ...Motor Strength: WNL Psychiatric: Yes: WNL Labs: CBC, BMP 12/02/18 05:35 12/02/18 05:35 INR, PTT INR 1.13 (0.83-1.09) H 12/01/18 15:05 Assessment/Plan - Problems (1) Diabetes Assessment/Plan: Recently started Metformin. Consider starting ACEI for renal protection could stopd amlodipine if BP drops too low). Code(s): E11.9 - TYPE 2 DIABETES MELLITUS WITHOUT COMPLICATIONS (2) Chest pain Assessment/Plan: No acute EKG changes. TNI <0.02 x 2. Multiple CAD risks. Stress MIBI + in 2014; coronary angiogram nonobstructive disease. Pt did not have DM at that time. Code(s): R07.9 - CHEST PAIN, UNSPECIFIED MIBI( st today moderate lateral wall ischemia. Will transfer for c. cath to [facility] (3) HTN (hypertension) Code(s): I10 - ESSENTIAL (PRIMARY) HYPERTENSION (4) Hyperlipidemia Code(s): E78.5 - HYPERLIPIDEMIA, UNSPECIFIED (5) Obesity Code(s): E66.9 - OBESITY, UNSPECIFIED Qualifiers: Body mass index: BMI 38.0-38.9 (6) BPH (benign prostatic hyperplasia) Code(s): N40.0 - BENIGN PROSTATIC HYPERPLASIA WITHOUT LOWER URINRY TRACT SYMP
--- NOTE | 2018-12-02 11:00 | ECHO ---
Name: WILLOW KABA Exam:Adult Echocardiogram Study Date: 12/02/2018 07:51 AM Age: 63 yrs Reason For Study: Chest pain Height: 66 in Weight: 240 lb BSA: 2.2 m2 MMode/2D Measurements & Calculations IVSd: 1.1 cm Ao root diam: 2.7 cm LVIDd: 5.0 cm LA dimension: 3.2 cm LVIDs: 2.9 cm LVPWd: 1.0 cm EDV(Teich): 119.2 ml LVOT diam: 2.0 cm ESV(Teich): 32.1 ml LAV (MOD-bp): 27.8 ml Doppler Measurements & Calculations MV E max mitchel: 43.2 cm/sec Ao V2 max: 100.4 cm/sec MV A max mitchel: 52.4 cm/sec Ao max P.0 mmHg MV E/A: 0.82 MV dec time: 0.16 sec ARELY(V,D): 2.6 cm2 LV V1 max P.6 mmHg TR max mitchel: 206.3 cm/sec LV V1 max: 81.0 cm/sec TR max P.2 mmHg PA V2 max: 131.7 cm/sec Med Peak E' Mitchel: 4.0 cm/sec PA max P.9 mmHg Med E/e': 10.7 Lat Peak E' Mitchel: 9.2 cm/sec Lat E/e': 4.7 PI Vmax: 171.0 cm/sec Procedure A two-dimensional transthoracic echocardiogram with color flow and Doppler was performed. Left Ventricle The left ventricular size, thickness and function are normal. The left ventricular ejection fraction is normal. E/A reversal consistent with but not diagnostic of poor LV compliance. The left ventricular w all motion is normal. Right Ventricle The right ventricle is normal in size and function. Atria Normal left and right atrial size and function. Mitral Valve There is mild mitral valve thickening. There is no mitral valve stenosis. There is trace to mild mitr al regurgitation. Tricuspid Valve The tricuspid valve is normal in structure and function. There is no tricuspid stenosis. There is Tra ce to mild tricuspid regurgitation. Right ventricular systolic pressure is normal. Aortic Valve The aortic valve is normal in structure and function. No hemodynamically significant valvular aortic stenosis. No aortic regurgitation is present. Pulmonic Valve The pulmonic valve is not well visualized. There is no pulmonic valvular stenosis. Trace pulmonic kei vular regurgitation. Great Vessels The aortic root is normal size. Pericardium/Pleura There is no pericardial effusion. Interpretation Summary The left ventricular size, thickness and function are normal The left ventricular ejection fraction is normal. The left ventricular wall motion is normal. There is trace to mild mitral regurgitation. There is Trace to mild tricuspid regurgitation. Right ventricular systolic pressure is normal. E/A reversal consistent with but not diagnostic of poor LV compliance MD Carlos Nair 12/02/2018 10:59 AM
--- NOTE | 2018-12-02 11:16 | EKG ---
Test Reason : Blood Pressure : / mmHG Vent. Rate : 078 BPM Atrial Rate : 078 BPM P-R Int : 176 ms QRS Dur : 088 ms QT Int : 372 ms P-R-T Axes : 050 -02 059 degrees QTc Int : 424 ms NORMAL SINUS RHYTHM POSSIBLE INFERIOR INFARCT , AGE UNDETERMINED ABNORMAL ECG WHEN COMPARED WITH ECG OF 01-DEC-2018 15:10, BORDERLINE CRITERIA FOR INFERIOR INFARCT ARE NOW PRESENT Confirmed by TONY RUIZ, SEBASTIAN ([id number]) on 12/02/2018 11:16:10 AM Referred By: Confirmed By:SEBASTIAN JIMENEZ MD
[2018-12-02] MEDS ORDERED: PT OWN MED DRAWER 7, Y5N ONE (11:54)
[2018-12-02] MEDS: ARTIFICIAL TEARS (POLYVINYL ALCOHOL) OPTH DROPS OU SCH (13:21)
[2018-12-02] MEDS: FLUTICASONE PROP 0.05% 16 GM NASAL SPRAY NS SCH (13:22)
--- NOTE | 2018-12-02 16:35 | DS ---
Physical Exam: SUBJECTIVE: Patient seen and examined OBJECTIVE: Vital Signs Period Temp Pulse Resp BP Sys/Jacobo Pulse Ox Last 24 Hr 97.3 F-98.6 F 75-88 16-20 116-140/71-79 97-99 PHYSICAL EXAM GENERAL: The patient is awake, alert, and fully oriented, in no acute distress. HEAD: Normal with no signs of trauma. EYES: PERRL, extraocular movements intact, sclera anicteric, conjunctiva clear. ENT: Ears normal, nares patent, oropharynx clear without exudates, moist mucous membranes. NECK: Trachea midline, full range of motion, supple. LUNGS: Breath sounds equal, clear to auscultation bilaterally, no wheezes, no crackles, no accessory muscle use. HEART: Regular rate and rhythm, S1, S2 without murmur, rub or gallop. ABDOMEN: Soft, nontender, nondistended, normoactive bowel sounds, no guarding, no rebound, no hepatosplenomegaly, no masses. EXTREMITIES: 2+ pulses, warm, well-perfused, no edema. NEUROLOGICAL: Cranial nerves II through XII grossly intact. Normal speech, gait not observed. PSYCH: Normal mood, normal affect. SKIN: Warm, dry, normal turgor, no rashes or lesions noted. LABS Laboratory Results - last 24 hr 12/01/18 12/01/18 12/02/18 21:04 21:04 05:09 WBC RBC Hgb Hct MCV MCH MCHC RDW Plt Count MPV Absolute Neuts (auto) Neutrophils % Lymphocytes % Monocytes % Eosinophils % Basophils % Nucleated RBC % Sodium Potassium Chloride Carbon Dioxide Anion Gap BUN Creatinine Est GFR (CKD-EPI)AfAm Est GFR (CKD-EPI)NonAf POC Glucometer 111 Random Glucose Hemoglobin A1c % Calcium Total Bilirubin AST ALT Alkaline Phosphatase Troponin I < 0.02 Total Protein Albumin Triglycerides 162 H Cholesterol 107 Total LDL Cholesterol 59 HDL Cholesterol 27 L TSH HIV 1&2 Antibody Screen HIV P24 Antigen 12/02/18 12/02/18 12/02/18 05:35 05:35 05:35 WBC 6.4 RBC 5.11 Hgb 14.4 Hct 42.2 MCV 82.5 MCH 28.2 MCHC 34.2 RDW 13.8 Plt Count 282 MPV 8.3 Absolute Neuts (auto) 3.9 Neutrophils % 61.7 Lymphocytes % 21.8 D Monocytes % 9.2 Eosinophils % 6.8 H Basophils % 0.5 Nucleated RBC % 0 Sodium 140 Potassium 4.2 Chloride 108 H Carbon Dioxide 26 Anion Gap 7 L BUN 13.9 Creatinine 1.1 Est GFR (CKD-EPI)AfAm 81.79 Est GFR (CKD-EPI)NonAf 70.57 POC Glucometer Random Glucose 113 H Hemoglobin A1c % 5.9 Calcium 8.6 Total Bilirubin 0.6 AST 27 ALT 42 Alkaline Phosphatase 95 Troponin I Total Protein 6.8 Albumin 3.6 Triglycerides Cholesterol Total LDL Cholesterol HDL Cholesterol TSH 2.69 HIV 1&2 Antibody Screen HIV P24 Antigen 12/02/18 05:35 WBC RBC Hgb Hct MCV MCH MCHC RDW Plt Count MPV Absolute Neuts (auto) Neutrophils % Lymphocytes % Monocytes % Eosinophils % Basophils % Nucleated RBC % Sodium Potassium Chloride Carbon Dioxide Anion Gap BUN Creatinine Est GFR (CKD-EPI)AfAm Est GFR (CKD-EPI)NonAf POC Glucometer Random Glucose Hemoglobin A1c % Calcium Total Bilirubin AST ALT Alkaline Phosphatase Troponin I Total Protein Albumin Triglycerides Cholesterol Total LDL Cholesterol HDL Cholesterol TSH HIV 1&2 Antibody Screen Negative HIV P24 Antigen Negative HOSPITAL COURSE: Date of Admission:12/01/18 Date of Discharge: 12/02/18 Minutes to complete discharge: 30 Discharge Summary Reason For Visit: CHEST PAIN Current Active Problems BPH (benign prostatic hyperplasia) (Acute) Borderline diabetes (Acute) CAD (coronary artery disease) (Acute) Chest pain (Acute) Diabetes (Acute) Prophylactic measure (Acute) Hospital Course: - ....Imaging Chest X-ray: Report Reviewed, Image Reviewed (no effsuion or infiltrates) EKG: Image Reviewed (NSR, QTc 447) Problem List - Problems (1) Prophylactic measure Assessment/Plan: FEN low fat/cholesterol diabetic diet when able to take PO Code(s): Z29.9 - ENCOUNTER FOR PROPHYLACTIC MEASURES, UNSPECIFIED (2) BPH (benign prostatic hyperplasia) Assessment/Plan: continue home dose of flomax Code(s): N40.0 - BENIGN PROSTATIC HYPERPLASIA WITHOUT LOWER URINRY TRACT SYMP (3) CAD (coronary artery disease) Assessment/Plan: + stress test 2014; a subsequent coronary angiogram showed nonobstructive CAD. Coronary angiogram 10/24/2014 at [facility]: non obstructive CAD (LAD proximal, mid and distal with 30% stenoses; LCx mid 30%; RCA luminal irregularities). plan for exercise stress today Code(s): I25.10 - ATHSCL HEART DISEASE OF [place] CORONARY ARTERY W/O ANG PCTRS (4) Chest pain Assessment/Plan: EKG NSR, trops negative x 2 ASA daily Stress test done that revealed moderate lateral wall ischemia. Will transfer for c. cath to [facility] as per Dr Nair. Code(s): R07.9 - CHEST PAIN, UNSPECIFIED (5) Diabetes Assessment/Plan: continue to hold metformin BGM AC.qHS with novolog sliding scale Code(s): E11.9 - TYPE 2 DIABETES MELLITUS WITHOUT COMPLICATIONS (6) HTN (hypertension) Assessment/Plan: normotensive, continue home dose of amlodopine Code(s): I10 - ESSENTIAL (PRIMARY) HYPERTENSION (7) Hyperlipidemia Assessment/Plan: continue home dose or lipitor Code(s): E78.5 - HYPERLIPIDEMIA, UNSPECIFIED (8) Obesity Assessment/Plan: nutrition counseling Code(s): E66.9 - OBESITY, UNSPECIFIED Qualifiers: Body mass index: BMI 38.0-38.9 Prophy SCDs ambulation ad mirta Dispo Transfer to [facility] full code Condition: Guarded - Instructions Diet, Activity, Other Instructions: NPO for cardiac cath. Resume cardiac diet after procedure - Home Medications Comprehensive Discharge Medication List: Ambulatory Orders Amlodipine Besylate [Norvasc -] 5 mg PO DAILY 10/20/14 Dextran 70/Hypromellose [Artificial Tears] 1 each OP DAILY 10/20/14 Tamsulosin HCl [Flomax -] 0.4 mg PO DAILY 10/20/14 Atorvastatin Ca [Lipitor] 20 mg PO HS #30 tablet 10/21/14 Metoprolol Tartrate [Lopressor -] 25 mg PO BID #60 tablet 10/21/14 Fluticasone Prop 0.05% Nasal [Flonase -] 1 - 2 spray NS DAILY #1 spray.pump 05/04 Montelukast Sodium [Singulair] 10 mg PO DAILY #10 tablet 10/24/18 Aspirin [ASA -] 81 mg PO DAILY tab.chew 12/02/18 Insulin Sliding Scale [Novolog Vial Sliding Scale -] 1 vial SQ TIDAC units Loratadine [Claritin -] 10 mg PO DAILY tablet 12/02/18 Polyvinyl Alcohol [Artificial Tears] 1 drop OU DAILY drops 12/02/18 Polyvinyl Alcohol [Artificial Tears] 1 drop OU Q4H PRN drops 12/02/18 Problem List - Problems (1) Prophylactic measure Code(s): Z29.9 - ENCOUNTER FOR PROPHYLACTIC MEASURES, UNSPECIFIED (2) BPH (benign prostatic hyperplasia) Code(s): N40.0 - BENIGN PROSTATIC HYPERPLASIA WITHOUT LOWER URINRY TRACT SYMP (3) CAD (coronary artery disease) Code(s): I25.10 - ATHSCL HEART DISEASE OF [place] CORONARY ARTERY W/O ANG PCTRS (4) Chest pain Code(s): R07.9 - CHEST PAIN, UNSPECIFIED (5) Diabetes Code(s): E11.9 - TYPE 2 DIABETES MELLITUS WITHOUT COMPLICATIONS (6) HTN (hypertension) Code(s): I10 - ESSENTIAL (PRIMARY) HYPERTENSION (7) Hyperlipidemia Code(s): E78.5 - HYPERLIPIDEMIA, UNSPECIFIED (8) Obesity Code(s): E66.9 - OBESITY, UNSPECIFIED Qualifiers: Body mass index: BMI 38.0-38.9 This patient is new to me today: No Emergency Visit: Yes ED Registration Date: 12/01/18 Care time: The patient presented to the Emergency Department on the above date and was hospitalized for further evaluation of their emergent condition. Critical Care patient: No - Discharge Referral Referred to [facility] Med [facility] No
[2018-12-02] MEDS: ZOLPIDEM TARTRATE 5 MG TABLET PO SCH (21:38)
[2018-12-03] MEDS: INSULIN SLIDING SCALE (NOVOLOG) 1 VIAL SQ SCH ×3 (06:02→17:07)
[2018-12-03 06:12] LABS: BASO % 0.5 % (0-2.0); HEMATOCRIT 42.8 % (35.4-49); HEMOGLOBIN 14.7 GM/dL (11.7-16.9); LYMPH % 18.2 % (8-40); MCH 28.4 pg (25.7-33.7); MCHC 34.3 g/dl (32.0-35.9); MEAN CELL VOLUME 82.8 fl (80-96); MEAN PLT VOLUME 8.2 fl (7.5-11.1); MONO % 8.1 % (3.8-10.2); NEUT % 66.2 % (42.8-82.8); PLATELET COUNT 275 K/MM3 (134-434); RBC 5.17 M/mm3 (4.00-5.60); RDW 13.6 % (11.9-15.9); WHITE BLOOD COUNT 6.8 K/mm3 (4.0-10.0)
[2018-12-03 06:44] LABS: ALBUMIN 3.5 g/dl (3.4-5.0); ALK PHOS 96 U/L (45-117); ANION GAP 6 MMOL/L (8-16); BILIRUBIN,TOTAL 0.4 mg/dL (0.2-1); BLOOD UREA NITROGEN 17.4 mg/dL (7-18); CALCIUM 8.5 mg/dL (8.5-10.1); CHLORIDE 107 mmol/L (98-107); CO2 25 mmol/L (21-32); CREATININE 1.1 mg/dL (0.55-1.3); GLUCOSE,RANDOM 119 mg/dL (74-106); MAGNESIUM 2.3 mg/dL (1.8-2.4); SGOT/AST 21 U/L (15-37); SGPT/ALT 40 U/L (13-61); SODIUM 139 mmol/L (136-145); TOT PROT 6.7 g/dl (6.4-8.2)
--- NOTE | 2018-12-03 07:23 | PN ---
Progress Note, Physician History of Present Illness: 63 yrs old male PMH HTN, Borderline T2DM on Metformin, Dyslipedemia,CAD s/p Cardiac Cath (10/24/2014 at [facility]. admitted at [place] + NST shows Inf Ischemia - referred to [facility] questionable stent placement however not on anticoagualtion) present with Left sided chest discomfort while driving described as pressure with right arm numbness and diaphoresis, denies SOB, palpations lasting for 2 hours. Upon arrival to ED hemodynamically stable chest pain improved EKG NSR with Troponin I negative x2 - Current Medication List Current Medications: Active Medications Amlodipine Besylate (Norvasc -) 5 mg PO DAILY [facility] Last Admin: 12/02/18 09:10 Dose: 5 mg Artificial Tears (Artificial Tears) 1 drop OU DAILY [facility] Last Admin: 12/02/18 13:21 Dose: 1 drop Aspirin (Asa -) 81 mg PO DAILY [facility] Last Admin: 12/02/18 09:10 Dose: 81 mg Fluticasone Propionate (Flonase -) 1 spray NS DAILY [facility] Last Admin: 12/02/18 13:22 Dose: 1 spray Insulin Aspart (Novolog Vial Sliding Scale -) 1 vial SQ TIDAC [facility]; Protocol Last Admin: 12/03/18 06:02 Dose: Not Given Loratadine (Claritin -) 10 mg PO DAILY [facility] Last Admin: 12/02/18 09:10 Dose: 10 mg Tamsulosin HCl (Flomax -) 0.4 mg PO DAILY [facility] Last Admin: 12/02/18 09:10 Dose: 0.4 mg Zolpidem Tartrate (Ambien -) 5 mg PO HS [facility] Last Admin: 12/02/18 21:38 Dose: 5 mg - Objective Vital Signs: Vital Signs Temperature 98.1 F 12/03/18 05:41 Pulse Rate 70 12/03/18 05:41 Respiratory Rate 16 12/03/18 05:41 Blood Pressure 117/82 12/03/18 05:41 O2 Sat by Pulse Oximetry (%) 97 12/02/18 21:00 Constitutional: Yes: Well Nourished, No Distress, Calm Eyes: Yes: WNL, Conjunctiva Clear, EOM Intact HENT: Yes: WNL, Atraumatic, Normocephalic Neck: Yes: WNL, Supple, Trachea Midline Cardiovascular: Yes: WNL, Regular Rate and Rhythm Respiratory: Yes: WNL, Regular, CTA Bilaterally Gastrointestinal: Yes: WNL, Normal Bowel Sounds, Soft ...Rectal Exam: Yes: Deferred Genitourinary: Yes: WNL Musculoskeletal: Yes: WNL Extremities: Yes: WNL Edema: No Peripheral Pulses WNL: Yes Integumentary: Yes: WNL Neurological: Yes: WNL, Alert, Oriented ...Motor Strength: WNL Psychiatric: Yes: WNL, Alert, Oriented Labs: CBC, BMP 12/03/18 05:15 12/03/18 05:15 INR, PTT INR 1.13 (0.83-1.09) H 12/01/18 15:05 Problem List - Problems (1) Prophylactic measure Assessment/Plan: FEN low fat/cholesterol diabetic diet monitor electrolytes nutrition counseling Prophy SCDs ambulation ad mirta Dispo mainatin as in patient discharge planning full code Code(s): Z29.9 - ENCOUNTER FOR PROPHYLACTIC MEASURES, UNSPECIFIED (2) BPH (benign prostatic hyperplasia) Assessment/Plan: continue home dose of flomax Code(s): N40.0 - BENIGN PROSTATIC HYPERPLASIA WITHOUT LOWER URINRY TRACT SYMP (3) CAD (coronary artery disease) Assessment/Plan: + stress test 2014; a subsequent coronary angiogram showed nonobstructive CAD. Coronary angiogram 10/24/2014 at [facility]: non obstructive CAD (LAD proximal, mid and distal with 30% stenoses; LCx mid 30%; RCA luminal irregularities). -ST yesterday with moderate lateral wall ischemia. - transfer initiated my Dr Nair for c. cath to [facility] Code(s): I25.10 - ATHSCL HEART DISEASE OF [place] CORONARY ARTERY W/O ANG PCTRS (4) Chest pain Assessment/Plan: EKG NSR, trops negative x 2 ASA given in ED and continue daily cardiology following and appreciate recommendations Code(s): R07.9 - CHEST PAIN, UNSPECIFIED (5) Diabetes Assessment/Plan: continue to hold metformin BGM AC.qHS with novolog sliding scale Code(s): E11.9 - TYPE 2 DIABETES MELLITUS WITHOUT COMPLICATIONS (6) HTN (hypertension) Assessment/Plan: normotensive, continue home dose of amlodopine Code(s): I10 - ESSENTIAL (PRIMARY) HYPERTENSION (7) Hyperlipidemia Code(s): E78.5 - HYPERLIPIDEMIA, UNSPECIFIED (8) Obesity Code(s): E66.9 - OBESITY, UNSPECIFIED Qualifiers: Body mass index: BMI 38.0-38.9 Visit type - Emergency Visit Emergency Visit: Yes ED Registration Date: 12/01/18 Care time: The patient presented to the Emergency Department on the above date and was hospitalized for further evaluation of their emergent condition. - New Patient This patient is new to me today: No - Critical Care Critical Care patient: No - Discharge Referral Referred to [facility] No
[2018-12-03] MEDS ORDERED: PT OWN MED DRAWER 7, Y5N ONE (09:05)
[2018-12-03] MEDS: LORATADINE 10 MG TABLET PO SCH (09:06)
[2018-12-03] MEDS: TAMSULOSIN HCL 0.4 MG CAP PO SCH (09:06)
[2018-12-03] MEDS: ASPIRIN 81 MG CHEWABLE TABLETS PO SCH (09:06)
[2018-12-03] MEDS: ARTIFICIAL TEARS (POLYVINYL ALCOHOL) OPTH DROPS OU SCH (09:06)
[2018-12-03] MEDS: FLUTICASONE PROP 0.05% 16 GM NASAL SPRAY NS SCH (09:06)
[2018-12-03] MEDS: amLODIPine BESYLATE 5 MG TABLET (FP) PO SCH (09:06)
--- NOTE | 2018-12-03 10:03 | PN ---
Progress Note, Physician - Current Medication List Current Medications: Active Medications Amlodipine Besylate (Norvasc -) 5 mg PO DAILY [facility] Last Admin: 12/03/18 09:06 Dose: 5 mg Artificial Tears (Artificial Tears) 1 drop OU DAILY [facility] Last Admin: 12/03/18 09:06 Dose: 1 drop Aspirin (Asa -) 81 mg PO DAILY [facility] Last Admin: 12/03/18 09:06 Dose: 81 mg Fluticasone Propionate (Flonase -) 1 spray NS DAILY [facility] Last Admin: 12/03/18 09:06 Dose: 1 spray Insulin Aspart (Novolog Vial Sliding Scale -) 1 vial SQ TIDAC [facility]; Protocol Last Admin: 12/03/18 06:02 Dose: Not Given Loratadine (Claritin -) 10 mg PO DAILY [facility] Last Admin: 12/03/18 09:06 Dose: 10 mg Tamsulosin HCl (Flomax -) 0.4 mg PO DAILY [facility] Last Admin: 12/03/18 09:06 Dose: 0.4 mg Zolpidem Tartrate (Ambien -) 5 mg PO HS [facility] Last Admin: 12/02/18 21:38 Dose: 5 mg - Objective Vital Signs: Vital Signs Temperature 98.2 F 12/03/18 08:20 Pulse Rate 80 12/03/18 08:20 Respiratory Rate 18 12/03/18 08:20 Blood Pressure 125/79 12/03/18 08:20 O2 Sat by Pulse Oximetry (%) 97 12/02/18 21:00 Labs: CBC, BMP 12/03/18 05:15 12/03/18 05:15 INR, PTT INR 1.13 (0.83-1.09) H 12/01/18 15:05 Problem List - Problems (1) Diabetes Code(s): E11.9 - TYPE 2 DIABETES MELLITUS WITHOUT COMPLICATIONS (2) Chest pain Code(s): R07.9 - CHEST PAIN, UNSPECIFIED (3) HTN (hypertension) Code(s): I10 - ESSENTIAL (PRIMARY) HYPERTENSION (4) Hyperlipidemia Code(s): E78.5 - HYPERLIPIDEMIA, UNSPECIFIED (5) Obesity Code(s): E66.9 - OBESITY, UNSPECIFIED Qualifiers: Body mass index: BMI 38.0-38.9 (6) BPH (benign prostatic hyperplasia) Code(s): N40.0 - BENIGN PROSTATIC HYPERPLASIA WITHOUT LOWER URINRY TRACT SYMP
--- NOTE | 2018-12-03 12:29 | EKG ---
Test Reason : Blood Pressure : / mmHG Vent. Rate : 069 BPM Atrial Rate : 069 BPM P-R Int : 178 ms QRS Dur : 090 ms QT Int : 394 ms P-R-T Axes : 059 -01 065 degrees QTc Int : 422 ms NORMAL SINUS RHYTHM POSSIBLE INFERIOR INFARCT (CITED ON OR BEFORE 01-DEC-2018) ABNORMAL ECG WHEN COMPARED WITH ECG OF 01-DEC-2018 17:24, NO SIGNIFICANT CHANGE WAS FOUND Confirmed by PHILIPPE RUIZ, ISIDRO ([id number]) on 12/03/2018 12:29:41 PM Referred By: Confirmed By:ISIDRO PAEZ MD
[2018-12-03 14:29] VITALS: PULSE 82; TEMP 98.4
[2018-12-03 14:32] VITALS: BP 131/83
== END 2018-12-03 19:05 | disposition short-term general hospital (02) ==
LOC: JER 14:29 → JERBED 16:31 → J4S 21:55
PROVIDERS: ADMIT Internal Medicine; ATTEND Nurse Practitioner Acute Care
DX: R07.9 Chest pain, unspecified (principal); I10 Essential (primary) hypertension; E78.5 Hyperlipidemia, unspecified; E11.9 Type 2 diabetes mellitus without complications; N40.0 Benign prostatic hyperplasia without lower urinary tract symptoms; I25.10 Atherosclerotic heart disease of native coronary artery without angina pectoris; E66.9 Obesity, unspecified; Z68.36 Body mass index [BMI] 36.0-36.9, adult; Z98.61 Coronary angioplasty status; Z79.84 Long term (current) use of oral hypoglycemic drugs; Z88.6 Allergy status to analgesic agent; Z29.9 Encounter for prophylactic measures, unspecified; Z79.02 Long term (current) use of antithrombotics/antiplatelets; Z79.82 Long term (current) use of aspirin
CPT/HCPCS: 36415; 71046-TC-FY; 78452-TC; 80053; 80061; 82550; 82962; 83036; 83721; 83735; 84443; 84484; 85025; 85610; 87389; 87522; 93005; 93010; 93017; 93306-TC; 99285-25; A9502; G0378

== ENCOUNTER 2020-10-05 10:34 | Observation (INO) | payer OTHER ==
[2020-10-05 10:48] VITALS: BMI 42.3
[2020-10-05] MEDS ORDERED: METOPROLOL TARTRATE 25 MG TABLET (FP) PO ONE (11:23)
[2020-10-05] MEDS ORDERED: ASPIRIN 81 MG CHEWABLE TABLETS PO ONE (11:24)
[2020-10-05] MEDS ORDERED: metFORMIN HCL 500 MG TABLET (FP) PO ONE (11:24)
[2020-10-05] MEDS ORDERED: LISINOPRIL 5 MG TABLET PO ONE (11:24)
[2020-10-05] MEDS ORDERED: METOPROLOL TARTRATE 25 MG TABLET (FP) ONE (11:29)
[2020-10-05] MEDS ORDERED: ASPIRIN 81 MG CHEWABLE TABLETS ONE (11:29)
[2020-10-05] MEDS ORDERED: LISINOPRIL 5 MG TABLET ONE (11:30)
[2020-10-05] MEDS ORDERED: metFORMIN HCL 500 MG TABLET (FP) ONE (11:30)
[2020-10-05 12:10] LABS: CHLORIDE 105 mmol/L (98-107); SODIUM 139 mmol/L (136-145)
[2020-10-05 12:12] LABS: ALBUMIN 3.8 g/dl (3.4-5.0); ANION GAP 7 MMOL/L (8-16); BLOOD UREA NITROGEN 13.9 mg/dL (7-18); CO2 27 mmol/L (21-32); GLUCOSE,RANDOM 126 mg/dL (74-106)
[2020-10-05 12:15] LABS: SGOT/AST 32 U/L (15-37); SGPT/ALT 48 U/L (13-61)
[2020-10-05 12:16] LABS: CREATININE 1.2 mg/dL (0.55-1.3)
[2020-10-05 12:17] LABS: BILIRUBIN,TOTAL 0.5 mg/dL (0.2-1); TOT PROT 7.6 g/dl (6.4-8.2)
[2020-10-05 12:18] LABS: ALK PHOS 101 U/L (45-117)
[2020-10-05 13:19] LABS: BASO % 0.8 % (0-2.0); EOS % 8.8 % (0-4.5); HEMATOCRIT 46.4 % (35.4-49); HEMOGLOBIN 15.8 GM/dL (11.7-16.9); LYMPH % 21.4 % (8-40); MCH 28.8 pg (25.7-33.7); MCHC 34.1 g/dl (32.0-35.9); MEAN CELL VOLUME 84.4 fl (80-96); MEAN PLT VOLUME 8.6 fl (7.5-11.1); PLATELET COUNT 259 K/MM3 (134-434); RDW 14.5 % (11.9-15.9); WHITE BLOOD COUNT 8.3 K/mm3 (4.0-10.0)
[2020-10-05 13:25] LABS: INR 1.08 (0.83-1.09); PROTHROMBIN TIME (PATIENT) 13.2 SEC (9.7-13.0)
[2020-10-05] MEDS ORDERED: ATORVASTATIN CA 80 MG TABLET (FP) PO ONE (16:49)
[2020-10-05] MEDS ORDERED: NITROGLYCERIN SUBLINGUAL 1/150 0.4 MG TAB SL PRN (16:49)
[2020-10-05] MEDS ORDERED: LISINOPRIL 20 MG TABLET ONE (17:11)
[2020-10-05] MEDS ORDERED: ATORVASTATIN CA 80 MG TABLET (FP) ONE (17:12)
[2020-10-05] MEDS: LISINOPRIL 5 MG TABLET PO SCH (17:15)
[2020-10-05 17:54] LABS: CHOLESTEROL 175 mg/dL (50-200)
[2020-10-05 17:55] LABS: LDL CHOLESTEROL (ONLY SJRH) 114 mg/dL (5-100)
[2020-10-05 17:56] LABS: HDL CHOLESTEROL 26 mg/dL (40-60); TRIGLYCERIDES 178 mg/dL (0-150)
[2020-10-06 07:30] LABS: BASO % 0.5 % (0-2.0); EOS % 8.9 % (0-4.5); HEMOGLOBIN 14.6 GM/dL (11.7-16.9); LYMPH % 21.9 % (8-40); MCH 28.6 pg (25.7-33.7); MCHC 33.9 g/dl (32.0-35.9); MEAN CELL VOLUME 84.6 fl (80-96); MEAN PLT VOLUME 8.9 fl (7.5-11.1); MONO % 8.3 % (3.8-10.2); NEUT % 60.4 % (42.8-82.8); PLATELET COUNT 231 K/MM3 (134-434); RBC 5.08 M/mm3 (4.00-5.60); RDW 14.2 % (11.9-15.9); WHITE BLOOD COUNT 7.2 K/mm3 (4.0-10.0)
[2020-10-06 07:48] LABS: CALCIUM 8.6 mg/dL (8.5-10.1)
[2020-10-06 07:49] LABS: ALBUMIN 3.3 g/dl (3.4-5.0); BLOOD UREA NITROGEN 18.2 mg/dL (7-18)
[2020-10-06 07:52] LABS: CREATININE 1.2 mg/dL (0.55-1.3)
[2020-10-06 07:53] LABS: BILIRUBIN,TOTAL 0.4 mg/dL (0.2-1); TOT PROT 6.4 g/dl (6.4-8.2)
[2020-10-06] MEDS: INSULIN SLIDING SCALE (NOVOLOG) 1 VIAL SQ SCH ×3 (08:53→16:38)
[2020-10-06] MEDS: METOPROLOL TARTRATE 50 MG TABLET (FP) PO SCH (13:33)
[2020-10-06] MEDS: ENOXAPARIN NA (PORCINE) 40 MG/0.4 ML DISP.SYRIN SQ SCH (13:33)
[2020-10-06] MEDS: LISINOPRIL 5 MG TABLET PO SCH (13:34)
[2020-10-06] MEDS: ASPIRIN 81 MG CHEWABLE TABLETS PO SCH (13:34)
[2020-10-06] MEDS ORDERED: ACETAMINOPHEN 325 MG TABLET (FP) PO ONE (19:55)
[2020-10-06] MEDS: ATORVASTATIN CA 80 MG TABLET (FP) PO SCH (22:27)
[2020-10-07] MEDS: INSULIN SLIDING SCALE (NOVOLOG) 1 VIAL SQ SCH ×3 (07:58→17:21)
[2020-10-07 08:45] LABS: BLOOD UREA NITROGEN 17.4 mg/dL (7-18); CALCIUM 9.2 mg/dL (8.5-10.1)
[2020-10-07 08:46] LABS: MAGNESIUM 2.4 mg/dL (1.8-2.4)
[2020-10-07 08:49] LABS: CREATININE 1.1 mg/dL (0.55-1.3)
[2020-10-07] MEDS: METOPROLOL TARTRATE 50 MG TABLET (FP) PO SCH (09:53)
[2020-10-07] MEDS: LISINOPRIL 5 MG TABLET PO SCH (09:53)
[2020-10-07] MEDS: ASPIRIN 81 MG CHEWABLE TABLETS PO SCH (09:53)
[2020-10-07] MEDS: ENOXAPARIN NA (PORCINE) 40 MG/0.4 ML DISP.SYRIN SQ SCH (09:54)
[2020-10-07] MEDS: ACETAMINOPHEN 325 MG TABLET (FP) PO PRN ×2 (10:42→22:23)
[2020-10-07] MEDS: ATORVASTATIN CA 80 MG TABLET (FP) PO SCH (22:23)
[2020-10-08] MEDS: INSULIN SLIDING SCALE (NOVOLOG) 1 VIAL SQ SCH ×3 (06:57→16:42)
[2020-10-08 08:19] LABS: BASO % 0.8 % (0-2.0); EOS % 6.7 % (0-4.5); HEMATOCRIT 46.2 % (35.4-49); HEMOGLOBIN 15.5 GM/dL (11.7-16.9); MCH 28.7 pg (25.7-33.7); MCHC 33.5 g/dl (32.0-35.9); MEAN CELL VOLUME 85.4 fl (80-96); MEAN PLT VOLUME 9.1 fl (7.5-11.1); MONO % 6.9 % (3.8-10.2); NEUT % 63.6 % (42.8-82.8); PLATELET COUNT 269 K/MM3 (134-434); RBC 5.41 M/mm3 (4.00-5.60); RDW 14.4 % (11.9-15.9); WHITE BLOOD COUNT 7.4 K/mm3 (4.0-10.0)
[2020-10-08 08:41] LABS: ALBUMIN 3.7 g/dl (3.4-5.0); BLOOD UREA NITROGEN 21.3 mg/dL (7-18)
[2020-10-08 08:43] LABS: CALCIUM 9.1 mg/dL (8.5-10.1)
[2020-10-08 08:44] LABS: CREATININE 1.2 mg/dL (0.55-1.3)
[2020-10-08 08:46] LABS: BILIRUBIN,TOTAL 0.5 mg/dL (0.2-1); TOT PROT 7.3 g/dl (6.4-8.2)
[2020-10-08] MEDS: ENOXAPARIN NA (PORCINE) 40 MG/0.4 ML DISP.SYRIN SQ SCH (09:24)
[2020-10-08] MEDS: ASPIRIN 81 MG CHEWABLE TABLETS PO SCH (09:25)
[2020-10-08] MEDS: METOPROLOL TARTRATE 50 MG TABLET (FP) PO SCH (09:25)
[2020-10-08] MEDS: LISINOPRIL 5 MG TABLET PO SCH (09:25)
[2020-10-08] MEDS: ATORVASTATIN CA 80 MG TABLET (FP) PO SCH (21:28)
[2020-10-08] MEDS: ACETAMINOPHEN 325 MG TABLET (FP) PO PRN (21:30)
[2020-10-09] MEDS: INSULIN SLIDING SCALE (NOVOLOG) 1 VIAL SQ SCH ×2 (06:21→11:16)
[2020-10-09] MEDS: ASPIRIN 81 MG CHEWABLE TABLETS PO SCH (09:09)
[2020-10-09] MEDS: ENOXAPARIN NA (PORCINE) 40 MG/0.4 ML DISP.SYRIN SQ SCH (09:11)
[2020-10-09] MEDS: ACETAMINOPHEN 325 MG TABLET (FP) PO PRN (09:18)
[2020-10-09] MEDS ORDERED: METOPROLOL TARTRATE 50 MG TABLET (FP) PO SCH (10:00)
[2020-10-09] MEDS ORDERED: LISINOPRIL 5 MG TABLET PO SCH (10:00)
[2020-10-09 11:50] LABS: BASO % 0.7 % (0-2.0); EOS % 7.9 % (0-4.5); HEMATOCRIT 44.1 % (35.4-49); HEMOGLOBIN 15.1 GM/dL (11.7-16.9); LYMPH % 21.7 % (8-40); MCH 28.7 pg (25.7-33.7); MCHC 34.3 g/dl (32.0-35.9); MEAN CELL VOLUME 83.7 fl (80-96); MEAN PLT VOLUME 8.4 fl (7.5-11.1); MONO % 9.3 % (3.8-10.2); NEUT % 60.4 % (42.8-82.8); PLATELET COUNT 243 K/MM3 (134-434); RBC 5.27 M/mm3 (4.00-5.60); RDW 14.2 % (11.9-15.9); WHITE BLOOD COUNT 6.7 K/mm3 (4.0-10.0)
[2020-10-09 12:13] LABS: ALBUMIN 3.4 g/dl (3.4-5.0); BLOOD UREA NITROGEN 19.8 mg/dL (7-18); CALCIUM 8.9 mg/dL (8.5-10.1)
[2020-10-09 12:17] LABS: CREATININE 1.2 mg/dL (0.55-1.3)
[2020-10-09 12:18] LABS: BILIRUBIN,TOTAL 0.5 mg/dL (0.2-1); TOT PROT 6.8 g/dl (6.4-8.2)
[2020-10-09 13:52] VITALS: BP 131/70; PULSE 66; TEMP 98
== END 2020-10-09 18:14 | disposition short-term general hospital (02) ==
LOC: JERFT 10:34 → JER 10:34 → JERBED 13:31 → J4W 17:26
PROVIDERS: ADMIT Internal Medicine
PROC: 3E023GC Introduction of Other Therapeutic Substance into Muscle, Percutaneous Approach (ICD-10-PCS; principal; 2020-10-05)
DX: I25.119 Atherosclerotic heart disease of native coronary artery with unspecified angina pectoris (principal); Z29.9 Encounter for prophylactic measures, unspecified; I11.9 Hypertensive heart disease without heart failure; I24.9 Acute ischemic heart disease, unspecified; I16.0 Hypertensive urgency; D72.10 Eosinophilia, unspecified; E66.01 Morbid (severe) obesity due to excess calories; Z68.41 Body mass index [BMI] 40.0-44.9, adult; E78.5 Hyperlipidemia, unspecified; E11.9 Type 2 diabetes mellitus without complications; N40.0 Benign prostatic hyperplasia without lower urinary tract symptoms; Z88.8 Allergy status to other drugs, medicaments and biological substances
CPT/HCPCS: 36415; 71046-TC-FY; 78452-TC; 80048; 80053; 80061; 82550; 82962; 83036; 83721; 83735; 84100; 84443; 84484; 85025; 85610; 85730; 93005; 93010; 93017; 93306-TC; 96372; 99285-25; A9502; C9803; G0378; U0003; U0005

== ENCOUNTER 2022-06-10 11:07 | Inpatient (IN) | payer OTHER ==
[2022-06-10] MEDS ORDERED: ACETAMINOPHEN 1000 MG/100 ML BAG IVPB ONE ×2 (13:31→21:48)
[2022-06-10] MEDS ORDERED: SODIUM CHLORIDE 1,000 ML IV STA (13:32)
[2022-06-10] MEDS ORDERED: ACETAMINOPHEN INJECTION 100 ML IVPB ONE (14:18)
[2022-06-10 14:29] LABS: BASO % 0.8 % (0-2.0); HEMATOCRIT 44.6 % (35.4-49); HEMOGLOBIN 14.6 GM/dL (11.7-16.9); LYMPH % 4.5 % (8-40); MCH 27.1 pg (25.7-33.7); MCHC 32.7 g/dl (32.0-35.9); MEAN PLT VOLUME 8.5 fl (7.5-11.1); MONO % 11.3 % (3.8-10.2); NEUT % 83.4 % (42.8-82.8); PLATELET COUNT 315 10^3/uL (134-434); RBC 5.38 M/mm3 (4.00-5.60); RDW 14.2 % (11.9-15.9); WHITE BLOOD COUNT 17.3 K/mm3 (4.0-10.0)
[2022-06-10 14:30] LABS: VENOUS BASE EXCESS -1.2 mmol/L (-2-2); VENOUS O2 SATURATION 66.8 % (70-80); VENOUS PCO2 40.3 mmHg (38-52); VENOUS PH 7.386 (7.310-7.410)
[2022-06-10 14:35] LABS: EPI CELLS 4 /uL (0-25.1); HYALINE CASTS 2 /uL (0-3.1); PH,URINE 5.5 (5.0-8.0); URINE APPEARANCE CLOUDY; URINE BACTERIA >9,000 /uL (0-1359); URINE BILIRUBIN NEGATIVE (NEGATIVE); URINE COLOR YELLOW; URINE GLUCOSE (UA) NEGATIVE (NEGATIVE); URINE KETONE 2+ (NEGATIVE); URINE LEUK ESTERASE 2+ (NEGATIVE); URINE NITRITE POSITIVE (NEGATIVE); URINE PROTEIN 2+ (NEGATIVE); URINE WBC 406 /uL (0-25.8)
[2022-06-10 14:36] LABS: INR 1.58 (0.83-1.09); PROTHROMBIN TIME (PATIENT) 18.3 SEC (9.7-13.0)
[2022-06-10 14:39] LABS: ACTIVATED PTT 33.8 SECONDS (25.2-36.5)
[2022-06-10] MEDS ORDERED: PIPERACILLIN/TAZOB 4.5 GM 4.5 GM in DEXTROSE 5%-WATER 100 ML IVPB ONE (14:56)
[2022-06-10 14:57] LABS: CHLORIDE 102 mmol/L (98-107); SODIUM 138 mmol/L (136-145)
[2022-06-10 14:59] LABS: URINE RBC 28.3 /uL (0-23.9)
[2022-06-10 14:59] LABS: CALCIUM 9.3 mg/dL (8.5-10.1)
[2022-06-10 15:01] LABS: ALBUMIN 3.3 g/dl (3.4-5.0); ANION GAP 11 MMOL/L (8-16); BLOOD UREA NITROGEN 23.3 mg/dL (7-18); CO2 24 mmol/L (21-32); GLUCOSE,RANDOM 138 mg/dL (74-106)
[2022-06-10 15:04] LABS: CREATININE 1.5 mg/dL (0.55-1.3); SGOT/AST 30 U/L (15-37); SGPT/ALT 35 U/L (13-61)
[2022-06-10 15:05] LABS: BILIRUBIN,TOTAL 0.6 mg/dL (0.2-1); TOT PROT 7.1 g/dl (6.4-8.2)
[2022-06-10 15:07] LABS: ALK PHOS 91 U/L (45-117)
[2022-06-10 15:09] LABS: N-TERMINAL BNP 861.6 pg/ml (5-125)
[2022-06-10] MEDS ORDERED: PIPERACILLIN/TAZOB 4.5 GM 4.5 GM/100 ML BAG IVPB ONE (15:09)
[2022-06-10] MEDS: SODIUM CHLORIDE 1,000 ML IV SCH (23:43)
[2022-06-11 06:00] VITALS: BMI 36.3
[2022-06-11] MEDS: INSULIN SLIDING SCALE (NOVOLOG) 1 VIAL SQ SCH ×4 (08:06→22:12)
[2022-06-11 10:51] LABS: BASO % 0.2 % (0-2.0); HEMATOCRIT 43.5 % (35.4-49); LYMPH % 5.4 % (8-40); MCH 26.6 pg (25.7-33.7); MCHC 32.1 g/dl (32.0-35.9); MEAN CELL VOLUME 82.8 fl (80-96); MEAN PLT VOLUME 8.2 fl (7.5-11.1); MONO % 11.6 % (3.8-10.2); NEUT % 82.8 % (42.8-82.8); PLATELET COUNT 301 10^3/uL (134-434); RBC 5.25 M/mm3 (4.00-5.60); RDW 14.1 % (11.9-15.9)
[2022-06-11 11:04] LABS: CHLORIDE 103 mmol/L (98-107); SODIUM 139 mmol/L (136-145)
[2022-06-11 11:08] LABS: ALBUMIN 2.7 g/dl (3.4-5.0); ANION GAP 10 MMOL/L (8-16); BLOOD UREA NITROGEN 21.6 mg/dL (7-18); CALCIUM 8.5 mg/dL (8.5-10.1); CO2 26 mmol/L (21-32); GLUCOSE,RANDOM 117 mg/dL (74-106); MAGNESIUM 1.9 mg/dL (1.8-2.4)
[2022-06-11] MEDS: CEFTRIAXONE 1 GM in DEXTROSE 5%-WATER - 50 ML IVPB SCH (11:08)
[2022-06-11 11:11] LABS: SGPT/ALT 31 U/L (13-61)
[2022-06-11 11:12] LABS: CREATININE 1.2 mg/dL (0.55-1.3)
[2022-06-11 11:13] LABS: BILIRUBIN,TOTAL 0.9 mg/dL (0.2-1)
[2022-06-11] MEDS: ENOXAPARIN NA (PORCINE) 40 MG/0.4 ML DISP.SYRIN SQ SCH ×2 (11:13→11:20)
[2022-06-11 11:14] LABS: ALK PHOS 91 U/L (45-117)
[2022-06-11] MEDS: METOPROLOL TARTRATE 25 MG TABLET (FP) PO SCH (11:14)
[2022-06-11] MEDS: TAMSULOSIN HCL 0.4 MG CAP PO SCH (11:14)
[2022-06-11] MEDS: ASPIRIN 81 MG CHEWABLE TABLETS PO SCH (11:14)
[2022-06-11 11:15] LABS: SGOT/AST 31 U/L (15-37)
[2022-06-11 11:16] LABS: TOT PROT 6.5 g/dl (6.4-8.2)
[2022-06-11] MEDS: NAPH,MB-DB/K PH,MBDB POWDER PACKET PO SCH ×3 (12:10→21:22)
[2022-06-11] MEDS: ACETAMINOPHEN 325 MG TABLET (FP) PO PRN ×2 (12:11→21:22)
[2022-06-11] MEDS: SODIUM CHLORIDE 1,000 ML IV SCH ×2 (17:05→22:12)
[2022-06-11] MEDS: ATORVASTATIN CA 10 MG TABLET (FP) PO SCH (21:22)
[2022-06-11] MEDS: MELATONIN 5 MG TABLETS PO PRN (21:29)
[2022-06-12] MEDS ORDERED: INSULIN (NOVOLOG) ASPART 100 UNITS/ML 10ML VIAL ONE ×2 (06:33→06:59)
[2022-06-12] MEDS: INSULIN SLIDING SCALE (NOVOLOG) 1 VIAL SQ SCH ×4 (06:51→21:43)
[2022-06-12] MEDS: TAMSULOSIN HCL 0.4 MG CAP PO SCH (08:47)
[2022-06-12] MEDS: ENOXAPARIN NA (PORCINE) 40 MG/0.4 ML DISP.SYRIN SQ SCH (09:25)
[2022-06-12] MEDS: ASPIRIN 81 MG CHEWABLE TABLETS PO SCH (09:25)
[2022-06-12] MEDS: CEFTRIAXONE 1 GM in DEXTROSE 5%-WATER - 50 ML IVPB SCH (09:25)
[2022-06-12] MEDS: METOPROLOL TARTRATE 25 MG TABLET (FP) PO SCH (09:46)
[2022-06-12] MEDS: ACETAMINOPHEN/CAFFEINE/BUTALBITAL 1 TAB PO PRN ×3 (09:55→19:57)
[2022-06-12 10:33] LABS: BASO % 0.1 % (0-2.0); EOS % 0.6 % (0-4.5); HEMATOCRIT 41.9 % (35.4-49); HEMOGLOBIN 13.7 GM/dL (11.7-16.9); LYMPH % 8.7 % (8-40); MCH 26.8 pg (25.7-33.7); MCHC 32.6 g/dl (32.0-35.9); MEAN CELL VOLUME 82.4 fl (80-96); MEAN PLT VOLUME 8.3 fl (7.5-11.1); MONO % 10.3 % (3.8-10.2); NEUT % 80.3 % (42.8-82.8); PLATELET COUNT 326 10^3/uL (134-434); RBC 5.09 M/mm3 (4.00-5.60); RDW 14.2 % (11.9-15.9); WHITE BLOOD COUNT 9.6 K/mm3 (4.0-10.0)
[2022-06-12 11:00] LABS: ALBUMIN 2.4 g/dl (3.4-5.0); BLOOD UREA NITROGEN 17.8 mg/dL (7-18); CALCIUM 8.1 mg/dL (8.5-10.1)
[2022-06-12 11:05] LABS: BILIRUBIN,TOTAL 0.4 mg/dL (0.2-1)
[2022-06-12] MEDS: ERTAPENEM SODIUM 1 GM in SODIUM CHLORIDE 50 ML IVPB SCH (11:49)
[2022-06-12 12:04] LABS: PHOSPHOROUS 1.5 mg/dL (2.5-4.9)
[2022-06-12] MEDS: ACETAMINOPHEN 325 MG TABLET (FP) PO PRN (17:22)
[2022-06-12] MEDS: NAPH,MB-DB/K PH,MBDB POWDER PACKET PO SCH ×2 (18:13→21:37)
[2022-06-12] MEDS: ATORVASTATIN CA 10 MG TABLET (FP) PO SCH (21:37)
[2022-06-12] MEDS: MELATONIN 5 MG TABLETS PO PRN (21:37)
[2022-06-13] MEDS: NAPH,MB-DB/K PH,MBDB POWDER PACKET PO SCH (06:15)
[2022-06-13] MEDS: INSULIN SLIDING SCALE (NOVOLOG) 1 VIAL SQ SCH ×2 (06:35→11:50)
[2022-06-13] MEDS ORDERED: INSULIN (NOVOLOG) ASPART 100 UNITS/ML 10ML VIAL ONE (06:47)
[2022-06-13] MEDS: ACETAMINOPHEN/CAFFEINE/BUTALBITAL 1 TAB PO PRN ×3 (06:48→18:21)
[2022-06-13] MEDS: METOPROLOL TARTRATE 25 MG TABLET (FP) PO SCH ×2 (09:47→22:03)
[2022-06-13] MEDS: TAMSULOSIN HCL 0.4 MG CAP PO SCH (09:47)
[2022-06-13] MEDS: ASPIRIN 81 MG CHEWABLE TABLETS PO SCH (09:47)
[2022-06-13] MEDS: ERTAPENEM SODIUM 1 GM in SODIUM CHLORIDE 50 ML IVPB SCH (09:48)
[2022-06-13] MEDS: ENOXAPARIN NA (PORCINE) 40 MG/0.4 ML DISP.SYRIN SQ SCH (09:48)
[2022-06-13] MEDS ORDERED: ACETAMINOPHEN/CAFFEINE/BUTALBITAL 1 TAB PO ONE (10:15)
[2022-06-13 10:42] LABS: BASO % 0.7 % (0-2.0); EOS % 1.3 % (0-4.5); HEMATOCRIT 43.6 % (35.4-49); HEMOGLOBIN 14.1 GM/dL (11.7-16.9); LYMPH % 12.9 % (8-40); MCH 26.8 pg (25.7-33.7); MCHC 32.5 g/dl (32.0-35.9); MEAN CELL VOLUME 82.5 fl (80-96); MEAN PLT VOLUME 8.5 fl (7.5-11.1); MONO % 10.6 % (3.8-10.2); NEUT % 74.5 % (42.8-82.8); PLATELET COUNT 375 10^3/uL (134-434); RBC 5.28 M/mm3 (4.00-5.60); RDW 14.3 % (11.9-15.9); WHITE BLOOD COUNT 7.9 K/mm3 (4.0-10.0)
[2022-06-13 11:14] LABS: ALBUMIN 2.6 g/dl (3.4-5.0); CALCIUM 8.3 mg/dL (8.5-10.1); MAGNESIUM 2.1 mg/dL (1.8-2.4)
[2022-06-13 11:16] LABS: PHOSPHOROUS 1.9 mg/dL (2.5-4.9)
[2022-06-13 11:17] LABS: CREATININE 1.1 mg/dL (0.55-1.3)
[2022-06-13 11:18] LABS: BILIRUBIN,TOTAL 0.4 mg/dL (0.2-1); TOT PROT 6.3 g/dl (6.4-8.2)
[2022-06-13] MEDS ORDERED: SODIUM PHOSPHATE IVPB ONE ×2 (12:43→14:45)
[2022-06-13] MEDS ORDERED: SODIUM CHLORIDE IVPB ONE ×2 (12:43→14:45)
[2022-06-13] MEDS: ATORVASTATIN CA 10 MG TABLET (FP) PO SCH (22:07)
[2022-06-14] MEDS: ACETAMINOPHEN/CAFFEINE/BUTALBITAL 1 TAB PO PRN ×2 (04:14→10:34)
[2022-06-14 10:05] LABS: BASO % 0.5 % (0-2.0); EOS % 2.4 % (0-4.5); HEMATOCRIT 43.4 % (35.4-49); HEMOGLOBIN 14.2 GM/dL (11.7-16.9); LYMPH % 18.5 % (8-40); MCH 26.9 pg (25.7-33.7); MCHC 32.7 g/dl (32.0-35.9); MEAN CELL VOLUME 82.3 fl (80-96); MEAN PLT VOLUME 8.2 fl (7.5-11.1); MONO % 14.9 % (3.8-10.2); NEUT % 63.7 % (42.8-82.8); PLATELET COUNT 387 10^3/uL (134-434); RBC 5.28 M/mm3 (4.00-5.60); RDW 14.5 % (11.9-15.9); WHITE BLOOD COUNT 7.7 K/mm3 (4.0-10.0)
[2022-06-14 10:30] LABS: ALBUMIN 2.5 g/dl (3.4-5.0); CALCIUM 8.3 mg/dL (8.5-10.1)
[2022-06-14 10:31] LABS: BLOOD UREA NITROGEN 14.4 mg/dL (7-18); MAGNESIUM 2.2 mg/dL (1.8-2.4)
[2022-06-14 10:33] LABS: CREATININE 1.1 mg/dL (0.55-1.3)
[2022-06-14 10:34] LABS: BILIRUBIN,TOTAL 0.5 mg/dL (0.2-1); PHOSPHOROUS 2.8 mg/dL (2.5-4.9)
[2022-06-14] MEDS: ERTAPENEM SODIUM 1 GM in SODIUM CHLORIDE 50 ML IVPB SCH (10:34)
[2022-06-14] MEDS: ENOXAPARIN NA (PORCINE) 40 MG/0.4 ML DISP.SYRIN SQ SCH (10:34)
[2022-06-14 10:35] LABS: TOT PROT 6.2 g/dl (6.4-8.2)
[2022-06-14] MEDS: ASPIRIN 81 MG CHEWABLE TABLETS PO SCH (10:35)
[2022-06-14] MEDS: TAMSULOSIN HCL 0.4 MG CAP PO SCH (10:35)
[2022-06-14] MEDS: METOPROLOL TARTRATE 25 MG TABLET (FP) PO SCH (10:35)
[2022-06-14 13:29] VITALS: BP 133/88; PULSE 73; RESP 20; TEMP 98.8
== END 2022-06-14 17:25 | disposition home health service (06) | DRG 872 ==
LOC: JER 11:07 → JERBED 21:07 → J8W 22:38
PROVIDERS: ADMIT Internal Medicine; ATTEND Nurse Practitioner Acute Care
PROC: 02HV33Z Insertion of Infusion Device into Superior Vena Cava, Percutaneous Approach (ICD-10-PCS; principal; 2022-06-14)
PROC: B518ZZA Fluoroscopy of Superior Vena Cava, Guidance (ICD-10-PCS; 2022-06-14)
DX: A41.89 Other specified sepsis (principal); N17.9 Acute kidney failure, unspecified; Z16.12 Extended spectrum beta lactamase (ESBL) resistance; N12 Tubulo-interstitial nephritis, not specified as acute or chronic; I25.10 Atherosclerotic heart disease of native coronary artery without angina pectoris; E78.5 Hyperlipidemia, unspecified; E11.9 Type 2 diabetes mellitus without complications; N40.0 Benign prostatic hyperplasia without lower urinary tract symptoms; N28.1 Cyst of kidney, acquired; R00.0 Tachycardia, unspecified; E66.9 Obesity, unspecified; Z68.36 Body mass index [BMI] 36.0-36.9, adult; R51.9 Headache, unspecified
CPT/HCPCS: 0241U-QW; 36415; 36569; 71045-TC-FY; 74176-TC; 77001-TC-FY; 80053; 81003; 82550; 82553; 82803; 82962; 83605; 83735; 83880; 84100; 84484; 85025; 85610; 85730; 86850; 86900; 86901; 87040; 87086; 87186; 93005; 93010; 99285-25; C1751